=== PATIENT | male | born 1950 | race Caucasian/White ===

== ENCOUNTER 2019-10-02 12:00 | Inpatient (IN) | payer MEDICARE, OTHER ==
[~2019-10-02] VITALS: Ht 182.9 cm; Wt 77.0 kg
[~2019-10-02 12:00] MED LIST: ABX; EYE DROPS
[2019-10-02 12:34] LABS: BASOPHILS % (AUTO) 0.2 % (0.0-2.0); EOSINOPHILS % (AUTO) 0 % (1.0-6.0); HEMATOCRIT 47.2 % (41-53); HEMOGLOBIN 15.3 g/dL (13.5-17.5); LYMPHOCYTES # (AUTO) 0.7 K/uL (1.0-4.8); LYMPHOCYTES % (AUTO) 25.9 % (22.0-44.0); MEAN CORPUSCULAR HEMOGLOBIN 30.1 pg (26.0-34.0); MEAN CORPUSCULAR HGB CONC 32.4 G/dL (31.0-37.0); MEAN CORPUSCULAR VOLUME 93 fL (80-100); MONOCYTES # (AUTO) 0.3 K/uL (0.1-1.0); MONOCYTES % (AUTO) 9.4 % (2.0-9.0); NEUTROPHILS # (AUTO) 1.8 K/uL (1.8-7.7); NEUTROPHILS % (AUTO) 64.5 % (40.0-70.0); PLATELET COUNT (AUTO) 147 K/uL (150-450); RED BLOOD CELL COUNT(AUTO) 5.07 MIL/uL (4.50-5.90); RED CELL DISTRIBUTION WIDTH 14.7 % (11.5-14.5)
[2019-10-02 12:40] LABS: ABG A-A DIFF O2 601.5 mmHg (10-20.0); ABG BASE EXCESS -6.6 mmol/L (-2.0-3.0); ABG CARBOXYHEMOGLOBIN 0.8 % (0.0-1.5); ABG METHEMOGLOBIN 0.1 % (0.0-1.5); ABG OXYHEMOGLOBIN 88.2 % (94.0-100.0); ABG PCO2 47 mmHg (35-45); ABG PH 7.258 (7.35-7.450); ABG TOTAL HEMOGLOBIN 13.7 G/dL (12.0-18.0); SOURCE, BLOOD GAS ARTERIAL; TEMPERATURE, FAHRENHEIT, BG 99.7 FAHREN (96.0-98.6)
[2019-10-02 12:41] LABS: O2 DEVICE,BLOOD GAS BIPAP (ROOM AIR); SITE, BLOOD GAS RT BRACHIAL; VENT MODE, BG NIPPV (ROOM AIR)
[2019-10-02 12:42] LABS: PRESSURE SUPPORT, BG 13 cm H2O; SPONTANEOUS VT, BG 729 ml
[2019-10-02] MEDS ORDERED: VANCOMYCIN HCL 1 GM/D5% WATER 200 ML IV ONE (12:45)
[2019-10-02] MEDS ORDERED: PIPERACILLIN SODIUM/TAZOBACTAM 4.5 GM in DEXTROSE 5%-WATER 100 ML IV ONE (12:45)
[2019-10-02 12:48] LABS: INR 1.2 (0.9-1.1); PROTHROMBIN TIME 11.7 SEC (9.4-11.6)
[2019-10-02] MEDS ORDERED: SODIUM CHLORIDE 0.9% 0 ML ONE ×2 (12:51→16:08)
[2019-10-02] MEDS ORDERED: IOVERSOL 320 MG/ML 100 ML VIAL ONE (12:51)
[2019-10-02 12:55] LABS: ANION GAP 11 mmol/L (8-16); CALCIUM, TOTAL 9.3 mg/dL (8.8-10.5); CARBON DIOXIDE 25 mmol/L (22-29); CHLORIDE 107 mmol/L (98-107); CREATININE 1.68 mg/dL (0.60-1.30); GLOMERULAR FILTR. RATE CALC 41 mL/min (>60); GLUCOSE,RANDOM 119 mg/dL (70-110); SODIUM SERUM 143 mmol/L (136-145); UREA NITROGEN, BLOOD 20 mg/dL (7-18)
[2019-10-02 12:58] LABS: B-TYPE NATRIURETIC PEPTIDE 157 pg/mL (0-100)
[2019-10-02] MEDS ORDERED: LORazepam 2 MG/ML VIAL IVP ONE ×2 (13:00→18:30)
[2019-10-02 13:03] LABS: SALICYLATE 0.9 mg/dL (2.8-20.0)
[2019-10-02 13:21] LABS: ALANINE AMINOTRANSFERASE 30 U/L (12-78); ALKALINE PHOSPHATASE 69 U/L (46-116); ASPARTATE AMINOTRANSFERASE 62 U/L (15-37); BILIRUBIN,TOTAL 0.7 mg/dL (0.1-1.0); TOTAL PROTEIN, SERUM 6.9 g/dL (6.4-8.2)
[2019-10-02 13:22] LABS: ACETAMINOPHEN < 2 mcg/mL (10-30); CREATINE KINASE, TOTAL ONLY 1268 U/L (39-308)
[2019-10-02 13:58] LABS: LACTIC ACID 6.1 mmol/L (0.4-2.0)
[2019-10-02] MEDS ORDERED: ACETAMINOPHEN 325 MG TABLET PO PRN (14:00)
[2019-10-02] MEDS ORDERED: ONDANSETRON HCL 4 MG/2 ML VIAL IVP PRN ×2 (14:00→19:30)
[2019-10-02] MEDS ORDERED: 0.9% SODIUM CHLORIDE 10 ML SYRINGE IVP PRN ×2 (14:00→19:30)
[2019-10-02] MEDS ORDERED: SODIUM CHLORIDE 0.9% 1,000 ML IV ONE (14:15)
[2019-10-02 14:25] LABS: APPEARANCE,URINE CLOUDY (CLEAR); GLUCOSE, URINE (UA) NEGATIVE (NEGATIVE); KETONES,URINE NEGATIVE (NEGATIVE); LEUKOCYTE ESTERASE ,URINE NEGATIVE (NEGATIVE); NITRATE,URINE NEGATIVE (NEGATIVE); OCCULT BLOOD,URINE LARGE (NEGATIVE); PROTEIN,URINE SEE CONFIRM (NEGATIVE)
[2019-10-02 14:27] LABS: BILIRUBIN,URINE PRELIM. POSITIVE (NEGATIVE)
[2019-10-02 14:30] LABS: AMPHET/METH SCREEN,URINE NEGATIVE (NEGATIVE); BARBITURATE SCREEN, URINE NEGATIVE (NEGATIVE); BENZODIAZEPINES SCREEN,URINE NEGATIVE (NEGATIVE); CANNABINOID SCREEN,URINE NEGATIVE (NEGATIVE); COCAINE SCREEN,URINE NEGATIVE (NEGATIVE); METHADONE SCREEN, URINE NEGATIVE (NEGATIVE); OPIATE SCREEN,URINE NEGATIVE (NEGATIVE)
[2019-10-02 14:34] LABS: SULFOSALICYLIC ACID,URINE 2+ (Negative)
[2019-10-02 14:35] LABS: BACTERIA,URINE Moderate /HPF (None Seen); PHENCYCLIDINE SCREEN,URINE NEGATIVE (NEGATIVE); WBC,URINE None Seen /HPF (0-5)
[2019-10-02 14:37] LABS: INFLUENZA TYPE A POSITIVE FOR TYPE A (NEGATIVE); INFLUENZA TYPE B NEGATIVE FOR TYPE B (NEGATIVE)
[2019-10-02] MEDS ORDERED: IOVERSOL 350 MG/ML 100 ML VIAL ONE (16:08)
[2019-10-02 18:00] VITALS: BP 96/64
[2019-10-02] MEDS ORDERED: PENTETATE DTPA TC99M/MCL ISOTOPE 1 EA INJ INJ ONE (19:00)
[2019-10-02] MEDS ORDERED: ALBUTEROL SULFATE 2.5 MG/0.5 ML NEB SOLUTION NEB PRN (19:30)
[2019-10-02] MEDS ORDERED: IPRATROPIUM BROMIDE 0.5 MG/2.5 ML NEB SOLUTION NEB PRN (19:30)
[2019-10-02] MEDS ORDERED: MAA ALBUMIN AGGREGATED TC99M/UD<10MCL ISOTOPE 1 EA INJ INJ ONE (19:45)
[2019-10-02] MEDS ORDERED: VANCOMYCIN HCL 500 MG in DEXTROSE 5%-WATER 100 ML IV ONE (20:00)
[2019-10-02] MEDS ORDERED: LORazepam 2 MG/ML VIAL IVP PRN (20:00)
[2019-10-02 20:20] VITALS: BP 137/96
[2019-10-02] MEDS: IPRATROPIUM BROMIDE 0.5 MG/2.5 ML NEB SOLUTION NEB SCH (20:41)
[2019-10-02] MEDS: ALBUTEROL SULFATE 2.5 MG/0.5 ML NEB SOLUTION NEB SCH (20:41)
[2019-10-02] MEDS: OSELTAMIVIR PHOSPHATE 30 MG CAPSULE PO SCH (21:00)
[2019-10-02] MEDS ORDERED: SODIUM CHLORIDE 0.9% 250 ML IV ONE (21:42)
[2019-10-02] MEDS: PIPERACILLIN/TAZO 3.375 GM/D5W 50 ML IV SCH (21:53)
[2019-10-02] MEDS: PANTOPRAZOLE SODIUM 40 MG/VIAL IVP SCH (21:53)
[2019-10-02 22:01] LABS: ABG A-A DIFF O2 461.2 mmHg (10-20.0); ABG BASE EXCESS -3.1 mmol/L (-2.0-3.0); ABG CARBOXYHEMOGLOBIN 0.1 % (0.0-1.5); ABG HCO3 21.9 mmol/L (22.0-26.0); ABG METHEMOGLOBIN 0.3 % (0.0-1.5); ABG OXYGEN CONTENT 17.5 mL/dL (15.0-23.0); ABG OXYGEN SATURATION 92.2 % (95.0-98.0); ABG OXYHEMOGLOBIN 91.8 % (94.0-100.0); ABG PCO2 43 mmHg (35-45); ABG PH 7.342 (7.35-7.450); ABG TOTAL HEMOGLOBIN 13.6 G/dL (12.0-18.0); O2 DEVICE,BLOOD GAS BIPAP (ROOM AIR); PO2, ARTERIAL BG 63.6 mmHg (79.0-87.0); SITE, BLOOD GAS RT RADIAL; SOURCE, BLOOD GAS ARTERIAL; TEMPERATURE, FAHRENHEIT, BG 99.3 FAHREN (96.0-98.6)
[2019-10-03] VITALS (7 sets, daily range): BP systolic 89–107; BP diastolic 50–65
[2019-10-03] MEDS: AZITHROMYCIN 500 MG/NS 250 ML IV SCH ×2 (00:35→23:15)
[2019-10-03] MEDS: HEPARIN SODIUM,PORCINE 5,000 UNITS/ML VIAL SQ SCH ×3 (00:38→15:25)
[2019-10-03] MEDS: IPRATROPIUM BROMIDE 0.5 MG/2.5 ML NEB SOLUTION NEB SCH ×4 (02:15→20:00)
[2019-10-03] MEDS: ALBUTEROL SULFATE 2.5 MG/0.5 ML NEB SOLUTION NEB SCH ×4 (02:16→20:00)
[2019-10-03] MEDS ORDERED: SODIUM CHLORIDE 0.9% 250 ML IV ONE (05:01)
[2019-10-03] MEDS: PIPERACILLIN/TAZO 3.375 GM/D5W 50 ML IV SCH ×4 (05:17→20:49)
[2019-10-03] MEDS: OSELTAMIVIR PHOSPHATE 30 MG CAPSULE PO SCH ×2 (08:00→20:49)
[2019-10-03] MEDS ORDERED: VANCOMYCIN HCL 1 GM/D5% WATER 200 ML IV SCH (08:00)
[2019-10-03] MEDS: BUDESONIDE 0.5 MG/2 ML NEB SOLUTION NEB SCH ×2 (08:01→21:00)
[2019-10-03] MEDS: PANTOPRAZOLE SODIUM 40 MG/VIAL IVP SCH (09:11)
[2019-10-03 09:50] LABS: BASOPHILS % (AUTO) 0.1 % (0.0-2.0); EOSINOPHILS % (AUTO) 0 % (1.0-6.0); HEMATOCRIT 37.2 % (41-53); HEMOGLOBIN 12.5 g/dL (13.5-17.5); LYMPHOCYTES # (AUTO) 0.6 K/uL (1.0-4.8); LYMPHOCYTES % (AUTO) 12.2 % (22.0-44.0); MEAN CORPUSCULAR HEMOGLOBIN 30.7 pg (26.0-34.0); MEAN CORPUSCULAR HGB CONC 33.4 G/dL (31.0-37.0); MEAN CORPUSCULAR VOLUME 92 fL (80-100); MONOCYTES # (AUTO) 0.2 K/uL (0.1-1.0); MONOCYTES % (AUTO) 4.4 % (2.0-9.0); NEUTROPHILS # (AUTO) 4.2 K/uL (1.8-7.7); NEUTROPHILS % (AUTO) 83.3 % (40.0-70.0); RED BLOOD CELL COUNT(AUTO) 4.06 MIL/uL (4.50-5.90); RED CELL DISTRIBUTION WIDTH 14.7 % (11.5-14.5)
[2019-10-03 09:54] LABS: ANION GAP 4 mmol/L (8-16); CALCIUM, TOTAL 8.6 mg/dL (8.8-10.5); CARBON DIOXIDE 29 mmol/L (22-29); CHLORIDE 113 mmol/L (98-107); CREATININE 1.29 mg/dL (0.60-1.30); GLOMERULAR FILTR. RATE CALC 55 mL/min (>60); GLUCOSE,RANDOM 98 mg/dL (70-110); POTASSIUM 3.6 mmol/L (3.5-5.1); SODIUM SERUM 146 mmol/L (136-145); UREA NITROGEN, BLOOD 19 mg/dL (7-18)
[2019-10-03 10:00] LABS: ALANINE AMINOTRANSFERASE 37 U/L (12-78); ALBUMIN 2.2 g/dL (3.4-5.0); ALKALINE PHOSPHATASE 47 U/L (46-116); ASPARTATE AMINOTRANSFERASE 158 U/L (15-37); BILIRUBIN,TOTAL 0.8 mg/dL (0.1-1.0); TOTAL PROTEIN, SERUM 5.4 g/dL (6.4-8.2)
[2019-10-03 10:19] LABS: PLATELET COUNT (AUTO) 90 K/uL (150-450)
[2019-10-03 12:24] LABS: ABG A-A DIFF O2 468.5 mmHg (10-20.0); ABG BASE EXCESS -1.5 mmol/L (-2.0-3.0); ABG CARBOXYHEMOGLOBIN 0.4 % (0.0-1.5); ABG HCO3 23.5 mmol/L (22.0-26.0); ABG METHEMOGLOBIN 0.3 % (0.0-1.5); ABG OXYGEN CONTENT 16.5 mL/dL (15.0-23.0); ABG OXYGEN SATURATION 92.8 % (95.0-98.0); ABG OXYHEMOGLOBIN 92.2 % (94.0-100.0); ABG PCO2 37 mmHg (35-45); ABG PH 7.419 (7.35-7.450); ABG TOTAL HEMOGLOBIN 12.7 G/dL (12.0-18.0); PO2, ARTERIAL BG 63.4 mmHg (79.0-87.0); SOURCE, BLOOD GAS ARTERIAL; TEMPERATURE, FAHRENHEIT, BG 98.7 FAHREN (96.0-98.6)
[2019-10-03 12:25] LABS: SITE, BLOOD GAS RT RADIAL
[2019-10-03 12:26] LABS: O2 DEVICE,BLOOD GAS BIPAP (ROOM AIR)
[2019-10-03] MEDS ORDERED: ALBUMIN HUMAN 25%-25GM/100ML 100 ML IV PRN (14:00)
[2019-10-03] MEDS ORDERED: SODIUM CHLORIDE 0.9% 1,000 ML IV SCH (14:00)
[2019-10-03] MEDS ORDERED: POTASSIUM CHLORIDE 20 MEQ ER TABLET PO PRN ×2 (14:00)
[2019-10-03] MEDS ORDERED: POTASSIUM CHLORIDE 10% 40 MEQ/30 ML LIQUID UDCUP PO PRN ×2 (14:00)
[2019-10-03] MEDS ORDERED: POTASSIUM CHL 10 MEQ/WATER 50 ML IV PRN ×3 (14:00)
[2019-10-03] MEDS ORDERED: ALBUMIN HUMAN 25%-25GM/100ML 100 ML IV ONE (14:00)
[2019-10-03] MEDS: POTASSIUM CHL 10 MEQ/WATER 50 ML IV PRN ×3 (15:00→17:35)
[2019-10-03] MEDS ORDERED: OSELTAMIVIR PHOSPHATE 30 MG CAPSULE PO ONE (15:00)
[2019-10-03] MEDS: CLOTRIMAZOLE 1% 15 GM CREAM TP SCH (17:38)
[2019-10-03] MEDS ORDERED: RINGERS SOLUTION,LACTATED 500 ML IV SCH (18:45)
[2019-10-03] MEDS: VANCOMYCIN HCL 750 MG in DEXTROSE 5%-WATER 250 ML IV SCH (20:06)
[2019-10-03] MEDS: RINGERS SOLUTION,LACTATED 1,000 ML IV SCH (20:09)
[2019-10-04] VITALS: BP 95/61
[2019-10-04] MEDS: HEPARIN SODIUM,PORCINE 5,000 UNITS/ML VIAL SQ SCH ×3 (01:29→17:00)
[2019-10-04] MEDS: ALBUTEROL SULFATE 2.5 MG/0.5 ML NEB SOLUTION NEB SCH ×4 (01:59→20:00)
[2019-10-04] MEDS: IPRATROPIUM BROMIDE 0.5 MG/2.5 ML NEB SOLUTION NEB SCH ×4 (01:59→20:00)
[2019-10-04] MEDS: PIPERACILLIN/TAZO 3.375 GM/D5W 50 ML IV SCH ×4 (03:22→21:50)
[2019-10-04 04:00] VITALS: BP 95/57
[2019-10-04 05:19] LABS: BASOPHILS % (AUTO) 0.1 % (0.0-2.0); EOSINOPHILS % (AUTO) 0 % (1.0-6.0); HEMATOCRIT 30.3 % (41-53); HEMOGLOBIN 10.3 g/dL (13.5-17.5); LYMPHOCYTES # (AUTO) 0.5 K/uL (1.0-4.8); LYMPHOCYTES % (AUTO) 11.5 % (22.0-44.0); MEAN CORPUSCULAR HGB CONC 34.1 G/dL (31.0-37.0); MEAN CORPUSCULAR VOLUME 91 fL (80-100); MONOCYTES # (AUTO) 0.1 K/uL (0.1-1.0); NEUTROPHILS # (AUTO) 3.9 K/uL (1.8-7.7); RED BLOOD CELL COUNT(AUTO) 3.33 MIL/uL (4.50-5.90); RED CELL DISTRIBUTION WIDTH 14.7 % (11.5-14.5)
[2019-10-04 05:35] LABS: ANION GAP 7 mmol/L (8-16); CALCIUM, TOTAL 8.4 mg/dL (8.8-10.5); CARBON DIOXIDE 28 mmol/L (22-29); CHLORIDE 112 mmol/L (98-107); CREATININE 1.19 mg/dL (0.60-1.30); GLOMERULAR FILTR. RATE CALC > 60 mL/min (>60); GLUCOSE,RANDOM 96 mg/dL (70-110); POTASSIUM 3.3 mmol/L (3.5-5.1); SODIUM SERUM 147 mmol/L (136-145); UREA NITROGEN, BLOOD 17 mg/dL (7-18)
[2019-10-04 05:59] LABS: NEUTROPHILS % (AUTO) 86.4 % (40.0-70.0)
[2019-10-04 06:07] LABS: PHOSPHORUS 1.2 mg/dL (2.5-4.9)
[2019-10-04] MEDS: BUDESONIDE 0.5 MG/2 ML NEB SOLUTION NEB SCH ×2 (07:54→20:00)
[2019-10-04 08:00] VITALS: BP 98/61
[2019-10-04 08:09] LABS: PLATELET COUNT (AUTO) 85 K/uL (150-450)
[2019-10-04 08:44] LABS: ABG A-A DIFF O2 251.5 mmHg (10-20.0); ABG BASE EXCESS 0.1 mmol/L (-2.0-3.0); ABG CARBOXYHEMOGLOBIN 0.3 % (0.0-1.5); ABG HCO3 24.6 mmol/L (22.0-26.0); ABG METHEMOGLOBIN 0.3 % (0.0-1.5); ABG OXYGEN CONTENT 14.5 mL/dL (15.0-23.0); ABG OXYGEN SATURATION 92.3 % (95.0-98.0); ABG OXYHEMOGLOBIN 91.7 % (94.0-100.0); ABG PCO2 38 mmHg (35-45); ABG PH 7.425 (7.35-7.450); ABG TOTAL HEMOGLOBIN 11.2 G/dL (12.0-18.0); SOURCE, BLOOD GAS ARTERIAL; TEMPERATURE, FAHRENHEIT, BG 98.6 FAHREN (96.0-98.6)
[2019-10-04] MEDS: CLOTRIMAZOLE 1% 15 GM CREAM TP SCH ×2 (08:59→20:53)
[2019-10-04] MEDS: PANTOPRAZOLE SODIUM 40 MG/VIAL IVP SCH (08:59)
[2019-10-04] MEDS: VANCOMYCIN HCL 750 MG in DEXTROSE 5%-WATER 250 ML IV SCH ×2 (08:59→20:52)
[2019-10-04] MEDS: OSELTAMIVIR PHOSPHATE 30 MG CAPSULE PO SCH (08:59)
[2019-10-04] MEDS ORDERED: POTASSIUM CHLORIDE 20 MEQ ER TABLET PO PRN (09:00)
[2019-10-04] MEDS: RINGERS SOLUTION,LACTATED 1,000 ML IV SCH ×2 (09:00→22:29)
[2019-10-04 09:01] LABS: O2 DEVICE,BLOOD GAS BIPAP (ROOM AIR); SITE, BLOOD GAS RT RADIAL
[2019-10-04 09:02] LABS: CPAP, BG 0 cm H2O
[2019-10-04 09:03] LABS: INSPIRATORY TIME, BG 1 SEC; PRESSURE SUPPORT, BG 13 cm H2O; SPONTANEOUS VT, BG 642 ml
[2019-10-04] MEDS ORDERED: POTASSIUM PHOS,M-BASIC-D-BASIC 30 MEQ in DEXTROSE 5%-WATER 150 ML IV ONE ×2 (11:00→18:00)
[2019-10-04] MEDS ORDERED: OSELTAMIVIR PHOSPHATE 30 MG CAPSULE PO ONE (11:00)
[2019-10-04 12:00] VITALS: BP 109/68
[2019-10-04] MEDS ORDERED: MORPHINE SULFATE 2 MG/ML SYRINGE IVP PRN (13:45)
[2019-10-04 16:00] VITALS: BP 142/73
[2019-10-04] MEDS: ACETAMINOPHEN 650 MG/20.3 ML SOLUTION UDCUP NG PRN (18:02)
[2019-10-04] MEDS ORDERED: SODIUM CHLORIDE 0.9% 250 ML IV ONE ×2 (18:40→20:55)
[2019-10-04 20:00] VITALS: BP 106/60
[2019-10-04] MEDS: OSELTAMIVIR PHOSPHATE 75 MG CAPSULE PO SCH (20:53)
[2019-10-04] MEDS: AZITHROMYCIN 500 MG/NS 250 ML IV SCH (22:48)
[2019-10-05] VITALS: BP 116/76
[2019-10-05] MEDS: HEPARIN SODIUM,PORCINE 5,000 UNITS/ML VIAL SQ SCH ×3 (00:40→15:01)
[2019-10-05] MEDS: ALBUTEROL SULFATE 2.5 MG/0.5 ML NEB SOLUTION NEB SCH ×4 (01:22→20:13)
[2019-10-05] MEDS: IPRATROPIUM BROMIDE 0.5 MG/2.5 ML NEB SOLUTION NEB SCH ×4 (01:22→20:13)
[2019-10-05] MEDS ORDERED: SODIUM CHLORIDE 0.9% 250 ML IV ONE (03:01)
[2019-10-05 04:00] VITALS: BP 107/67
[2019-10-05] MEDS: PIPERACILLIN/TAZO 3.375 GM/D5W 50 ML IV SCH ×4 (04:00→21:58)
[2019-10-05 05:13] LABS: BASOPHILS % (AUTO) 0.2 % (0.0-2.0); EOSINOPHILS % (AUTO) 0 % (1.0-6.0); HEMATOCRIT 26.6 % (41-53); HEMOGLOBIN 8.9 g/dL (13.5-17.5); LYMPHOCYTES # (AUTO) 0.7 K/uL (1.0-4.8); LYMPHOCYTES % (AUTO) 12.7 % (22.0-44.0); MEAN CORPUSCULAR HEMOGLOBIN 30.7 pg (26.0-34.0); MEAN CORPUSCULAR HGB CONC 33.4 G/dL (31.0-37.0); MEAN CORPUSCULAR VOLUME 92 fL (80-100); MONOCYTES # (AUTO) 0.2 K/uL (0.1-1.0); MONOCYTES % (AUTO) 4.1 % (2.0-9.0); NEUTROPHILS # (AUTO) 4.7 K/uL (1.8-7.7); PLATELET COUNT (AUTO) 69 K/uL (150-450)
[2019-10-05 05:30] LABS: ANION GAP 10 mmol/L (8-16); CALCIUM, TOTAL 7.8 mg/dL (8.8-10.5); CARBON DIOXIDE 24 mmol/L (22-29); CHLORIDE 110 mmol/L (98-107); CREATININE 0.78 mg/dL (0.60-1.30); GLOMERULAR FILTR. RATE CALC > 60 mL/min (>60); GLUCOSE,RANDOM 64 mg/dL (70-110); PHOSPHORUS 1.5 mg/dL (2.5-4.9); POTASSIUM 3.9 mmol/L (3.5-5.1); SODIUM SERUM 144 mmol/L (136-145); UREA NITROGEN, BLOOD 10 mg/dL (7-18)
[2019-10-05 08:00] VITALS: BP 109/70
[2019-10-05] MEDS: VANCOMYCIN HCL 1 GM/D5% WATER 200 ML IV SCH ×2 (08:22→20:05)
[2019-10-05] MEDS: OSELTAMIVIR PHOSPHATE 75 MG CAPSULE PO SCH ×2 (08:22→20:54)
[2019-10-05] MEDS: CLOTRIMAZOLE 1% 15 GM CREAM TP SCH ×2 (08:23→20:54)
[2019-10-05] MEDS: PANTOPRAZOLE SODIUM 40 MG/VIAL IVP SCH (08:23)
[2019-10-05] MEDS: BUDESONIDE 0.5 MG/2 ML NEB SOLUTION NEB SCH ×2 (08:36→20:13)
[2019-10-05 08:55] LABS: ABG A-A DIFF O2 228.3 mmHg (10-20.0); ABG BASE EXCESS -2.1 mmol/L (-2.0-3.0); ABG CARBOXYHEMOGLOBIN 0.3 % (0.0-1.5); ABG HCO3 23.1 mmol/L (22.0-26.0); ABG METHEMOGLOBIN 0.3 % (0.0-1.5); ABG OXYGEN SATURATION 95.9 % (95.0-98.0); ABG OXYHEMOGLOBIN 95.3 % (94.0-100.0); ABG PCO2 36 mmHg (35-45); ABG PH 7.411 (7.35-7.450); ABG TOTAL HEMOGLOBIN 11.1 G/dL (12.0-18.0); PO2, ARTERIAL BG 86.4 mmHg (79.0-87.0); SOURCE, BLOOD GAS ARTERIAL; TEMPERATURE, FAHRENHEIT, BG 99.8 FAHREN (96.0-98.6)
[2019-10-05 09:28] LABS: O2 DEVICE,BLOOD GAS BIPAP (ROOM AIR); SITE, BLOOD GAS LFT RADIAL
[2019-10-05 09:29] LABS: INSPIRATORY TIME, BG 1 SEC; SPONTANEOUS VT, BG 683 ml
[2019-10-05] MEDS: RINGERS SOLUTION,LACTATED 1,000 ML IV SCH (11:57)
[2019-10-05 12:00] VITALS: BP 118/58
[2019-10-05] MEDS ORDERED: MAGNESIUM SULFATE 4 GM/WATER 100 ML IV PRN (13:45)
[2019-10-05] MEDS ORDERED: MAGNESIUM SULFATE 2 GM/WATER 50 ML IV PRN (13:45)
[2019-10-05] MEDS ORDERED: POTASSIUM CHLORIDE 20 MEQ ER TABLET PO PRN (13:45)
[2019-10-05] MEDS ORDERED: MAGNESIUM OXIDE 400 MG TABLET PO PRN (13:45)
[2019-10-05 14:02] LABS: ALBUMIN 1.7 g/dL (3.4-5.0)
[2019-10-05] MEDS: POTASSIUM PHOS/SODIUM PHOS MIXTURE 1 POWDER PACKET PO SCH ×2 (15:04→20:54)
[2019-10-05 16:00] VITALS: BP 99/42
[2019-10-05 20:00] VITALS: BP 139/65
[2019-10-05] MEDS: AZITHROMYCIN 500 MG/NS 250 ML IV SCH (23:00)
[2019-10-05 23:11] LABS: ABG A-A DIFF O2 497.1 mmHg (10-20.0); ABG METHEMOGLOBIN 0.3 % (0.0-1.5); ABG OXYGEN CONTENT 15.2 mL/dL (15.0-23.0); ABG OXYHEMOGLOBIN 91.7 % (94.0-100.0); ABG PCO2 42 mmHg (35-45); ABG PH 7.416 (7.35-7.450); ABG TOTAL HEMOGLOBIN 11.8 G/dL (12.0-18.0); PO2, ARTERIAL BG 63.3 mmHg (79.0-87.0); SOURCE, BLOOD GAS ARTERIAL
[2019-10-05 23:12] LABS: SITE, BLOOD GAS RT RADIAL
[2019-10-05 23:13] LABS: O2 DEVICE,BLOOD GAS BIPAP (ROOM AIR); SPONTANEOUS VT, BG 487 ml
[2019-10-06] VITALS (7 sets, daily range): BP systolic 102–139; BP diastolic 56–71
[2019-10-06] MEDS: HEPARIN SODIUM,PORCINE 5,000 UNITS/ML VIAL SQ SCH ×3 (00:47→16:31)
[2019-10-06] MEDS: RINGERS SOLUTION,LACTATED 1,000 ML IV SCH ×2 (00:51→14:44)
[2019-10-06] MEDS: IPRATROPIUM BROMIDE 0.5 MG/2.5 ML NEB SOLUTION NEB SCH ×4 (01:44→20:04)
[2019-10-06] MEDS: ALBUTEROL SULFATE 2.5 MG/0.5 ML NEB SOLUTION NEB SCH ×4 (01:44→20:04)
[2019-10-06] MEDS: LORazepam 2 MG/ML VIAL IVP PRN (02:45)
[2019-10-06] MEDS: PIPERACILLIN/TAZO 3.375 GM/D5W 50 ML IV SCH ×4 (03:48→22:13)
[2019-10-06] MEDS: ACETAMINOPHEN 650 MG/20.3 ML SOLUTION UDCUP NG PRN (04:01)
[2019-10-06 05:22] LABS: BASOPHILS % (AUTO) 0.3 % (0.0-2.0); EOSINOPHILS % (AUTO) 0.1 % (1.0-6.0); HEMATOCRIT 33.2 % (41-53); LYMPHOCYTES # (AUTO) 0.5 K/uL (1.0-4.8); LYMPHOCYTES % (AUTO) 13.5 % (22.0-44.0); MEAN CORPUSCULAR HEMOGLOBIN 30.3 pg (26.0-34.0); MEAN CORPUSCULAR HGB CONC 33.2 G/dL (31.0-37.0); MEAN CORPUSCULAR VOLUME 91 fL (80-100); MONOCYTES # (AUTO) 0.4 K/uL (0.1-1.0); MONOCYTES % (AUTO) 9.8 % (2.0-9.0); NEUTROPHILS % (AUTO) 76.3 % (40.0-70.0); PLATELET COUNT (AUTO) 85 K/uL (150-450); RED BLOOD CELL COUNT(AUTO) 3.63 MIL/uL (4.50-5.90); RED CELL DISTRIBUTION WIDTH 15.7 % (11.5-14.5)
[2019-10-06 05:41] LABS: ALANINE AMINOTRANSFERASE 46 U/L (12-78); ALBUMIN 1.9 g/dL (3.4-5.0); ALKALINE PHOSPHATASE 161 U/L (46-116); ANION GAP 6 mmol/L (8-16); ASPARTATE AMINOTRANSFERASE 86 U/L (15-37); CALCIUM, TOTAL 8.3 mg/dL (8.8-10.5); CARBON DIOXIDE 29 mmol/L (22-29); CHLORIDE 112 mmol/L (98-107); CREATININE 0.99 mg/dL (0.60-1.30); GLOMERULAR FILTR. RATE CALC > 60 mL/min (>60); GLUCOSE,RANDOM 129 mg/dL (70-110); POTASSIUM 3.7 mmol/L (3.5-5.1); SODIUM SERUM 147 mmol/L (136-145); TOTAL PROTEIN, SERUM 5.2 g/dL (6.4-8.2); UREA NITROGEN, BLOOD 9 mg/dL (7-18)
[2019-10-06] MEDS: BUDESONIDE 0.5 MG/2 ML NEB SOLUTION NEB SCH ×2 (07:42→20:04)
[2019-10-06] MEDS: VANCOMYCIN HCL 1 GM/D5% WATER 200 ML IV SCH ×2 (08:39→20:03)
[2019-10-06] MEDS: POTASSIUM PHOS/SODIUM PHOS MIXTURE 1 POWDER PACKET PO SCH (08:43)
[2019-10-06] MEDS: OSELTAMIVIR PHOSPHATE 75 MG CAPSULE PO SCH ×2 (08:43→21:22)
[2019-10-06] MEDS: PANTOPRAZOLE SODIUM 40 MG/VIAL IVP SCH (08:43)
[2019-10-06] MEDS: CLOTRIMAZOLE 1% 15 GM CREAM TP SCH ×2 (08:44→21:21)
[2019-10-06] MEDS ORDERED: RAPID SEQUENCE KIT [RSI] 1 EACH KIT ONE (08:58)
[2019-10-06 09:06] LABS: ABG BASE EXCESS 5.2 mmol/L (-2.0-3.0); ABG HCO3 28.3 mmol/L (22.0-26.0); ABG METHEMOGLOBIN 0.3 % (0.0-1.5); ABG OXYGEN CONTENT 14.7 mL/dL (15.0-23.0); ABG OXYHEMOGLOBIN 93.7 % (94.0-100.0); ABG PCO2 49 mmHg (35-45); ABG PH 7.402 (7.35-7.450); ABG TOTAL HEMOGLOBIN 11.1 G/dL (12.0-18.0); PO2, ARTERIAL BG 68.6 mmHg (79.0-87.0); SOURCE, BLOOD GAS ARTERIAL; TEMPERATURE, FAHRENHEIT, BG 98.6 FAHREN (96.0-98.6)
[2019-10-06 09:07] LABS: O2 DEVICE,BLOOD GAS BIPAP (ROOM AIR); SITE, BLOOD GAS RT RADIAL
[2019-10-06 09:08] LABS: PRESSURE SUPPORT, BG 9 cm H2O; SPONTANEOUS VT, BG 548 ml
[2019-10-06] MEDS: PROPOFOL 1000 MG/ISO-OSM 100 ML IV PRN ×3 (10:33→21:22)
[2019-10-06 15:28] LABS: SITE, BLOOD GAS RT RADIAL; SOURCE, BLOOD GAS ARTERIAL
[2019-10-06 15:29] LABS: ABG HCO3 28.6 mmol/L (22.0-26.0); ABG PCO2 40 mmHg (35-45); ABG PH 7.469 (7.35-7.450); ABG TOTAL HEMOGLOBIN 10.9 G/dL (12.0-18.0); PO2, ARTERIAL BG 70.9 mmHg (79.0-87.0); TEMPERATURE, FAHRENHEIT, BG 98.6 FAHREN (96.0-98.6)
[2019-10-06 15:30] LABS: ABG CARBOXYHEMOGLOBIN 0.3 % (0.0-1.5); ABG METHEMOGLOBIN 0.3 % (0.0-1.5); ABG OXYGEN CONTENT 14.5 mL/dL (15.0-23.0); ABG OXYHEMOGLOBIN 94.4 % (94.0-100.0); O2 DEVICE,BLOOD GAS VENTILATOR (ROOM AIR); VT, ABG 500 ml
[2019-10-06 15:31] LABS: PEEP,BG 5 cm H2O
[2019-10-06 16:32] LABS: APPEARANCE,URINE CLOUDY (CLEAR); BILIRUBIN,URINE NEGATIVE (NEGATIVE); GLUCOSE, URINE (UA) NEGATIVE (NEGATIVE); KETONES,URINE NEGATIVE (NEGATIVE); LEUKOCYTE ESTERASE ,URINE SMALL (NEGATIVE); NITRATE,URINE NEGATIVE (NEGATIVE); OCCULT BLOOD,URINE LARGE (NEGATIVE); PH,URINE 6.5 (5.0-8.0); PROTEIN,URINE SEE CONFIRM (NEGATIVE)
[2019-10-06 16:42] LABS: BACTERIA,URINE Few /HPF (None Seen); RBC,URINE 51-100 /HPF (0-2); SQUAMOUS EPITHELIAL CELL,UR Few /LPF (None Seen); SULFOSALICYLIC ACID,URINE 3+ (Negative)
[2019-10-06] MEDS ORDERED: ETOMIDATE 2 MG/ML 10 ML VIAL ONE (17:17)
[2019-10-06] MEDS ORDERED: VECURONIUM BROMIDE 10 MG/VIAL ONE (17:17)
[2019-10-06] MEDS ORDERED: SODIUM CHLORIDE 0.9% 250 ML IV ONE (20:00)
[2019-10-06] MEDS: AZITHROMYCIN 500 MG/NS 250 ML IV SCH (23:29)
[2019-10-07] VITALS: BP 108/56
[2019-10-07] MEDS: HEPARIN SODIUM,PORCINE 5,000 UNITS/ML VIAL SQ SCH ×4 (00:38→23:41)
[2019-10-07] MEDS: ALBUTEROL SULFATE 2.5 MG/0.5 ML NEB SOLUTION NEB SCH ×4 (01:25→20:46)
[2019-10-07] MEDS: IPRATROPIUM BROMIDE 0.5 MG/2.5 ML NEB SOLUTION NEB SCH ×4 (01:25→20:46)
[2019-10-07] MEDS: PROPOFOL 1000 MG/ISO-OSM 100 ML IV PRN ×5 (03:20→23:20)
[2019-10-07] MEDS: PIPERACILLIN/TAZO 3.375 GM/D5W 50 ML IV SCH ×4 (03:50→21:28)
[2019-10-07 04:00] VITALS: BP 128/62
[2019-10-07 05:49] LABS: BASOPHILS % (AUTO) 0.7 % (0.0-2.0); EOSINOPHILS % (AUTO) 0.5 % (1.0-6.0); HEMOGLOBIN 10.3 g/dL (13.5-17.5); LYMPHOCYTES # (AUTO) 0.9 K/uL (1.0-4.8); LYMPHOCYTES % (AUTO) 26.8 % (22.0-44.0); MEAN CORPUSCULAR HEMOGLOBIN 30.6 pg (26.0-34.0); MEAN CORPUSCULAR HGB CONC 33.3 G/dL (31.0-37.0); MEAN CORPUSCULAR VOLUME 92 fL (80-100); MONOCYTES # (AUTO) 0.5 K/uL (0.1-1.0); MONOCYTES % (AUTO) 14.5 % (2.0-9.0); NEUTROPHILS % (AUTO) 57.5 % (40.0-70.0); PLATELET COUNT (AUTO) 97 K/uL (150-450); RED BLOOD CELL COUNT(AUTO) 3.37 MIL/uL (4.50-5.90); RED CELL DISTRIBUTION WIDTH 15.1 % (11.5-14.5)
[2019-10-07] MEDS ORDERED: SODIUM CHLORIDE 0.9% 250 ML IV ONE (05:55)
[2019-10-07] MEDS: RINGERS SOLUTION,LACTATED 1,000 ML IV SCH ×2 (05:56→17:17)
[2019-10-07 06:14] LABS: ANION GAP 6 mmol/L (8-16); CARBON DIOXIDE 30 mmol/L (22-29); CHLORIDE 111 mmol/L (98-107); CREATININE 0.93 mg/dL (0.60-1.30); GLOMERULAR FILTR. RATE CALC > 60 mL/min (>60); GLUCOSE,RANDOM 105 mg/dL (70-110); POTASSIUM 3.3 mmol/L (3.5-5.1); SODIUM SERUM 147 mmol/L (136-145); UREA NITROGEN, BLOOD 8 mg/dL (7-18); VANCOMYCIN,RANDOM 28.6 mcg/mL (25.0-50.0)
[2019-10-07 08:00] VITALS: BP 133/67
[2019-10-07] MEDS: BUDESONIDE 0.5 MG/2 ML NEB SOLUTION NEB SCH ×2 (08:01→20:46)
[2019-10-07] MEDS: OSELTAMIVIR PHOSPHATE 75 MG CAPSULE PO SCH ×2 (08:39→21:27)
[2019-10-07] MEDS: PANTOPRAZOLE SODIUM 40 MG/VIAL IVP SCH (08:39)
[2019-10-07] MEDS: CLOTRIMAZOLE 1% 15 GM CREAM TP SCH ×2 (08:44→21:27)
[2019-10-07] MEDS: VANCOMYCIN HCL 1 GM/D5% WATER 200 ML IV SCH ×2 (08:49→20:21)
[2019-10-07] MEDS: POTASSIUM CHL 10 MEQ/WATER 50 ML IV PRN ×6 (08:49→20:21)
[2019-10-07] MEDS ORDERED: SODIUM CHLORIDE 0.9% 500 ML IV ONE ×2 (09:01→09:17)
[2019-10-07 11:25] LABS: LEGIONELLA PNEUMO AG URINE Negative (Negative); ORGANISM ID Not indicated.; S PNEUMO SOURCE Urine; STREP PNEUMONIAE AG URINE Negative (Negative); STREP.PNEUMO BODY FLUID CULT. Not indicated.
[2019-10-07 12:00] VITALS: BP 114/59
[2019-10-07 16:00] VITALS: BP 126/69
[2019-10-07 20:00] VITALS: BP 130/72
[2019-10-07] MEDS: AZITHROMYCIN 500 MG/NS 250 ML IV SCH (23:20)
[2019-10-08] VITALS: BP 118/54
[2019-10-08] MEDS: ALBUTEROL SULFATE 2.5 MG/0.5 ML NEB SOLUTION NEB SCH ×4 (02:30→20:23)
[2019-10-08] MEDS: IPRATROPIUM BROMIDE 0.5 MG/2.5 ML NEB SOLUTION NEB SCH ×4 (02:31→20:22)
[2019-10-08] MEDS: PROPOFOL 1000 MG/ISO-OSM 100 ML IV PRN ×4 (03:23→18:57)
[2019-10-08 04:00] VITALS: BP 124/63
[2019-10-08] MEDS: PIPERACILLIN/TAZO 3.375 GM/D5W 50 ML IV SCH ×2 (04:26→10:10)
[2019-10-08 05:14] LABS: BASOPHILS % (AUTO) 0.6 % (0.0-2.0); EOSINOPHILS % (AUTO) 1.6 % (1.0-6.0); HEMATOCRIT 31.9 % (41-53); HEMOGLOBIN 10.4 g/dL (13.5-17.5); LYMPHOCYTES # (AUTO) 0.8 K/uL (1.0-4.8); LYMPHOCYTES % (AUTO) 18.2 % (22.0-44.0); MEAN CORPUSCULAR HEMOGLOBIN 29.9 pg (26.0-34.0); MEAN CORPUSCULAR HGB CONC 32.6 G/dL (31.0-37.0); MEAN CORPUSCULAR VOLUME 92 fL (80-100); MONOCYTES # (AUTO) 0.6 K/uL (0.1-1.0); MONOCYTES % (AUTO) 13.3 % (2.0-9.0); NEUTROPHILS # (AUTO) 2.8 K/uL (1.8-7.7); NEUTROPHILS % (AUTO) 66.3 % (40.0-70.0); PLATELET COUNT (AUTO) 153 K/uL (150-450); RED BLOOD CELL COUNT(AUTO) 3.48 MIL/uL (4.50-5.90); RED CELL DISTRIBUTION WIDTH 15.6 % (11.5-14.5)
[2019-10-08 05:28] LABS: ANION GAP 1 mmol/L (8-16); CALCIUM, TOTAL 8.3 mg/dL (8.8-10.5); CARBON DIOXIDE 30 mmol/L (22-29); CHLORIDE 114 mmol/L (98-107); CREATININE 0.83 mg/dL (0.60-1.30); GLOMERULAR FILTR. RATE CALC > 60 mL/min (>60); GLUCOSE,RANDOM 112 mg/dL (70-110); SODIUM SERUM 145 mmol/L (136-145); UREA NITROGEN, BLOOD 6 mg/dL (7-18)
[2019-10-08] MEDS ORDERED: SODIUM CHLORIDE 0.9% 250 ML IV ONE ×2 (07:50→07:52)
[2019-10-08] MEDS: BUDESONIDE 0.5 MG/2 ML NEB SOLUTION NEB SCH ×2 (07:57→20:23)
[2019-10-08 08:00] VITALS: BP 134/53
[2019-10-08] MEDS: PANTOPRAZOLE SODIUM 40 MG/VIAL IVP SCH (08:03)
[2019-10-08] MEDS: HEPARIN SODIUM,PORCINE 5,000 UNITS/ML VIAL SQ SCH ×2 (08:03→17:02)
[2019-10-08] MEDS: MULTIVITAMINS, THERAPEUTIC 15 ML UDCUP GT SCH (08:04)
[2019-10-08] MEDS: THIAMINE HCL 100 MG TABLET PO SCH (08:04)
[2019-10-08] MEDS: OSELTAMIVIR PHOSPHATE 75 MG CAPSULE PO SCH ×2 (08:04→22:21)
[2019-10-08] MEDS: RINGERS SOLUTION,LACTATED 1,000 ML IV SCH ×2 (08:05→22:21)
[2019-10-08] MEDS: CLOTRIMAZOLE 1% 15 GM CREAM TP SCH ×2 (08:05→22:21)
[2019-10-08] MEDS: VANCOMYCIN HCL 1 GM/D5% WATER 200 ML IV SCH (08:06)
[2019-10-08 11:47] LABS: ABG A-A DIFF O2 162.1 mmHg (10-20.0); ABG BASE EXCESS 4.8 mmol/L (-2.0-3.0); ABG CARBOXYHEMOGLOBIN 0.3 % (0.0-1.5); ABG HCO3 28.3 mmol/L (22.0-26.0); ABG METHEMOGLOBIN 0.3 % (0.0-1.5); ABG OXYGEN CONTENT 13.9 mL/dL (15.0-23.0); ABG OXYGEN SATURATION 95.1 % (95.0-98.0); ABG OXYHEMOGLOBIN 94.5 % (94.0-100.0); ABG PCO2 43 mmHg (35-45); ABG PH 7.442 (7.35-7.450); ABG TOTAL HEMOGLOBIN 10.4 G/dL (12.0-18.0); PO2, ARTERIAL BG 73.5 mmHg (79.0-87.0); SOURCE, BLOOD GAS ARTERIAL; TEMPERATURE, FAHRENHEIT, BG 98.3 FAHREN (96.0-98.6)
[2019-10-08 11:53] LABS: O2 DEVICE,BLOOD GAS VENTILATOR (ROOM AIR); PEEP,BG 5 cm H2O; SITE, BLOOD GAS LFT RADIAL; VT, ABG 500 ml
[2019-10-08 12:00] VITALS: BP 130/68
[2019-10-08] MEDS ORDERED: POTASSIUM PHOS/SODIUM PHOS MIXTURE 1 POWDER PACKET PO SCH ×2 (15:00→21:00)
[2019-10-08 16:00] VITALS: BP 149/71
[2019-10-08] MEDS: CeFAZolin 2 GM/DEXTROSE 50 ML IV SCH (16:33)
[2019-10-08 17:26] LABS: ABG A-A DIFF O2 173.1 mmHg (10-20.0); ABG BASE EXCESS 3.2 mmol/L (-2.0-3.0); ABG CARBOXYHEMOGLOBIN 0.3 % (0.0-1.5); ABG HCO3 26.9 mmol/L (22.0-26.0); ABG METHEMOGLOBIN 0.3 % (0.0-1.5); ABG OXYGEN CONTENT 14.4 mL/dL (15.0-23.0); ABG OXYGEN SATURATION 92.4 % (95.0-98.0); ABG OXYHEMOGLOBIN 91.8 % (94.0-100.0); ABG PCO2 42 mmHg (35-45); ABG TOTAL HEMOGLOBIN 11.1 G/dL (12.0-18.0); SOURCE, BLOOD GAS ARTERIAL; TEMPERATURE, FAHRENHEIT, BG 99.3 FAHREN (96.0-98.6)
[2019-10-08 17:35] LABS: PEEP,BG 0 cm H2O; PRESSURE SUPPORT, BG 8 cm H2O; SITE, BLOOD GAS RT RADIAL; SPONTANEOUS VT, BG 538 ml; VENT MODE, BG CPAP (ROOM AIR)
[2019-10-09] MEDS: PROPOFOL 1000 MG/ISO-OSM 100 ML IV PRN ×3 (00:19→08:04)
[2019-10-09] MEDS: CeFAZolin 2 GM/DEXTROSE 50 ML IV SCH ×4 (00:20→23:47)
[2019-10-09] MEDS: RINGERS SOLUTION,LACTATED 1,000 ML IV SCH ×2 (00:20→17:45)
[2019-10-09] MEDS: HEPARIN SODIUM,PORCINE 5,000 UNITS/ML VIAL SQ SCH ×4 (00:20→23:47)
[2019-10-09] MEDS: ALBUTEROL SULFATE 2.5 MG/0.5 ML NEB SOLUTION NEB SCH ×4 (02:09→19:52)
[2019-10-09] MEDS: IPRATROPIUM BROMIDE 0.5 MG/2.5 ML NEB SOLUTION NEB SCH ×4 (02:09→19:52)
[2019-10-09 06:26] LABS: ANION GAP 2 mmol/L (8-16); CALCIUM, TOTAL 8.2 mg/dL (8.8-10.5); CARBON DIOXIDE 31 mmol/L (22-29); CHLORIDE 114 mmol/L (98-107); CREATININE 0.83 mg/dL (0.60-1.30); GLOMERULAR FILTR. RATE CALC > 60 mL/min (>60); GLUCOSE,RANDOM 131 mg/dL (70-110); POTASSIUM 3.9 mmol/L (3.5-5.1); SODIUM SERUM 147 mmol/L (136-145); UREA NITROGEN, BLOOD 6 mg/dL (7-18)
[2019-10-09 08:00] VITALS: BP 136/67
[2019-10-09] MEDS: MULTIVITAMINS, THERAPEUTIC 15 ML UDCUP GT SCH (08:04)
[2019-10-09] MEDS: PANTOPRAZOLE SODIUM 40 MG/VIAL IVP SCH (08:04)
[2019-10-09] MEDS: OSELTAMIVIR PHOSPHATE 75 MG CAPSULE PO SCH ×2 (08:04→20:00)
[2019-10-09] MEDS: THIAMINE HCL 100 MG TABLET PO SCH (08:05)
[2019-10-09] MEDS: CLOTRIMAZOLE 1% 15 GM CREAM TP SCH ×2 (08:06→21:43)
[2019-10-09] MEDS: BUDESONIDE 0.5 MG/2 ML NEB SOLUTION NEB SCH ×2 (08:55→19:52)
[2019-10-09 12:00] VITALS: BP 150/72
[2019-10-09 13:04] LABS: ABG A-A DIFF O2 163.1 mmHg (10-20.0); ABG BASE EXCESS 3.1 mmol/L (-2.0-3.0); ABG CARBOXYHEMOGLOBIN 0.3 % (0.0-1.5); ABG HCO3 26.8 mmol/L (22.0-26.0); ABG METHEMOGLOBIN 0.3 % (0.0-1.5); ABG OXYGEN CONTENT 14.5 mL/dL (15.0-23.0); ABG OXYGEN SATURATION 93.5 % (95.0-98.0); ABG OXYHEMOGLOBIN 92.9 % (94.0-100.0); ABG PCO2 44 mmHg (35-45); ABG PH 7.413 (7.35-7.450); ABG TOTAL HEMOGLOBIN 11.1 G/dL (12.0-18.0); CPAP, BG 5 cm H2O; O2 DEVICE,BLOOD GAS VENTILATOR (ROOM AIR); PO2, ARTERIAL BG 70.7 mmHg (79.0-87.0); PRESSURE SUPPORT, BG 8 cm H2O; SITE, BLOOD GAS LFT RADIAL; SOURCE, BLOOD GAS ARTERIAL; TEMPERATURE, FAHRENHEIT, BG 99.3 FAHREN (96.0-98.6); VENT MODE, BG CPAP (ROOM AIR)
[2019-10-09 16:00] VITALS: BP 157/74
[2019-10-09] MEDS ORDERED: FentaNYL CITRATE PF 500 MCG in DEXTROSE 5%-WATER 90 ML IV PRN (18:52)
[2019-10-09] MEDS: ACETAMINOPHEN 650 MG/20.3 ML SOLUTION UDCUP NG PRN (19:59)
[2019-10-09 20:00] VITALS: BP 138/66
[2019-10-09] MEDS: MORPHINE SULFATE 2 MG/ML SYRINGE IVP PRN (20:00)
[2019-10-09 21:00] VITALS: BP 140/63
[2019-10-10] VITALS (7 sets, daily range): BP systolic 125–159; BP diastolic 57–72
[2019-10-10] MEDS: ALBUTEROL SULFATE 2.5 MG/0.5 ML NEB SOLUTION NEB SCH ×4 (01:16→19:48)
[2019-10-10] MEDS: IPRATROPIUM BROMIDE 0.5 MG/2.5 ML NEB SOLUTION NEB SCH ×4 (01:16→19:48)
[2019-10-10] MEDS ORDERED: SODIUM CHLORIDE 0.9% 250 ML IV ONE ×2 (02:45→23:10)
[2019-10-10] MEDS: LORazepam 2 MG/ML VIAL IVP PRN (03:02)
[2019-10-10] MEDS: MORPHINE SULFATE 2 MG/ML SYRINGE IVP PRN (04:30)
[2019-10-10 05:13] LABS: BASOPHILS % (AUTO) 0.5 % (0.0-2.0); EOSINOPHILS % (AUTO) 1.9 % (1.0-6.0); HEMATOCRIT 32.6 % (41-53); HEMOGLOBIN 10.6 g/dL (13.5-17.5); LYMPHOCYTES % (AUTO) 16.8 % (22.0-44.0); MEAN CORPUSCULAR HEMOGLOBIN 29.8 pg (26.0-34.0); MEAN CORPUSCULAR HGB CONC 32.6 G/dL (31.0-37.0); MEAN CORPUSCULAR VOLUME 92 fL (80-100); MONOCYTES # (AUTO) 0.5 K/uL (0.1-1.0); MONOCYTES % (AUTO) 8.6 % (2.0-9.0); NEUTROPHILS # (AUTO) 4.3 K/uL (1.8-7.7); NEUTROPHILS % (AUTO) 72.2 % (40.0-70.0); PLATELET COUNT (AUTO) 271 K/uL (150-450); RED BLOOD CELL COUNT(AUTO) 3.56 MIL/uL (4.50-5.90); RED CELL DISTRIBUTION WIDTH 15.3 % (11.5-14.5)
[2019-10-10 05:24] LABS: ALANINE AMINOTRANSFERASE 73 U/L (12-78); ALBUMIN 1.6 g/dL (3.4-5.0); ALKALINE PHOSPHATASE 117 U/L (46-116); ANION GAP 4 mmol/L (8-16); ASPARTATE AMINOTRANSFERASE 74 U/L (15-37); BILIRUBIN,TOTAL 0.2 mg/dL (0.1-1.0); CALCIUM, TOTAL 8.2 mg/dL (8.8-10.5); CARBON DIOXIDE 28 mmol/L (22-29); CHLORIDE 112 mmol/L (98-107); CREATININE 0.67 mg/dL (0.60-1.30); GLOMERULAR FILTR. RATE CALC > 60 mL/min (>60); GLUCOSE,RANDOM 96 mg/dL (70-110); POTASSIUM 4.4 mmol/L (3.5-5.1); SODIUM SERUM 144 mmol/L (136-145); TOTAL PROTEIN, SERUM 5.6 g/dL (6.4-8.2); UREA NITROGEN, BLOOD 11 mg/dL (7-18)
[2019-10-10] MEDS: OSELTAMIVIR PHOSPHATE 75 MG CAPSULE PO SCH ×2 (08:29→21:03)
[2019-10-10] MEDS: THIAMINE HCL 100 MG TABLET PO SCH (08:29)
[2019-10-10] MEDS: MULTIVITAMINS, THERAPEUTIC 15 ML UDCUP GT SCH (08:30)
[2019-10-10] MEDS: HEPARIN SODIUM,PORCINE 5,000 UNITS/ML VIAL SQ SCH ×2 (08:30→16:07)
[2019-10-10] MEDS: CeFAZolin 2 GM/DEXTROSE 50 ML IV SCH ×3 (08:30→23:30)
[2019-10-10] MEDS: RINGERS SOLUTION,LACTATED 1,000 ML IV SCH (08:42)
[2019-10-10] MEDS: BUDESONIDE 0.5 MG/2 ML NEB SOLUTION NEB SCH ×2 (08:50→19:48)
[2019-10-10] MEDS: PANTOPRAZOLE SODIUM 40 MG/VIAL IVP SCH (08:58)
[2019-10-10] MEDS: CLOTRIMAZOLE 1% 15 GM CREAM TP SCH ×2 (09:06→21:46)
[2019-10-10] MEDS: ACETAMINOPHEN 650 MG/20.3 ML SOLUTION UDCUP NG PRN ×2 (09:52→21:02)
[2019-10-11] VITALS: BP 139/82
[2019-10-11] MEDS: RINGERS SOLUTION,LACTATED 1,000 ML IV SCH ×2 (00:54→15:45)
[2019-10-11] MEDS: LORazepam 2 MG/ML VIAL IVP PRN ×2 (01:15→22:29)
[2019-10-11] MEDS: ALBUTEROL SULFATE 2.5 MG/0.5 ML NEB SOLUTION NEB SCH ×4 (01:47→20:03)
[2019-10-11] MEDS: IPRATROPIUM BROMIDE 0.5 MG/2.5 ML NEB SOLUTION NEB SCH ×4 (01:48→20:03)
[2019-10-11 04:00] VITALS: BP 153/67
[2019-10-11 08:00] VITALS: BP 126/70
[2019-10-11] MEDS: MULTIVITAMINS, THERAPEUTIC 15 ML UDCUP GT SCH (08:31)
[2019-10-11] MEDS: PANTOPRAZOLE SODIUM 40 MG/VIAL IVP SCH (08:31)
[2019-10-11] MEDS: HEPARIN SODIUM,PORCINE 5,000 UNITS/ML VIAL SQ SCH ×3 (08:31→17:14)
[2019-10-11] MEDS: OSELTAMIVIR PHOSPHATE 75 MG CAPSULE PO SCH ×2 (08:32→21:09)
[2019-10-11] MEDS: CLOTRIMAZOLE 1% 15 GM CREAM TP SCH ×2 (08:33→21:09)
[2019-10-11] MEDS: CeFAZolin 2 GM/DEXTROSE 50 ML IV SCH ×2 (08:33→15:44)
[2019-10-11] MEDS: THIAMINE HCL 100 MG TABLET PO SCH (08:33)
[2019-10-11] MEDS: BUDESONIDE 0.5 MG/2 ML NEB SOLUTION NEB SCH ×2 (08:50→20:04)
[2019-10-11 09:24] LABS: ABG A-A DIFF O2 174.7 mmHg (10-20.0); ABG BASE EXCESS 1.3 mmol/L (-2.0-3.0); ABG CARBOXYHEMOGLOBIN 0.1 % (0.0-1.5); ABG HCO3 25.7 mmol/L (22.0-26.0); ABG METHEMOGLOBIN 0.3 % (0.0-1.5); ABG OXYGEN CONTENT 14.2 mL/dL (15.0-23.0); ABG OXYGEN SATURATION 94.2 % (95.0-98.0); ABG OXYHEMOGLOBIN 93.8 % (94.0-100.0); ABG PCO2 36 mmHg (35-45); ABG PH 7.458 (7.35-7.450); ABG TOTAL HEMOGLOBIN 10.7 G/dL (12.0-18.0); O2 DEVICE,BLOOD GAS VENTILATOR (ROOM AIR); PO2, ARTERIAL BG 68.8 mmHg (79.0-87.0); SITE, BLOOD GAS RT RADIAL; SOURCE, BLOOD GAS ARTERIAL; TEMPERATURE, FAHRENHEIT, BG 98.6 FAHREN (96.0-98.6); VT, ABG 500 ml
[2019-10-11 09:25] LABS: PEEP,BG 5 cm H2O
[2019-10-11 10:14] LABS: BASOPHILS % (AUTO) 0.4 % (0.0-2.0); EOSINOPHILS % (AUTO) 1.3 % (1.0-6.0); HEMATOCRIT 29.7 % (41-53); HEMOGLOBIN 9.9 g/dL (13.5-17.5); LYMPHOCYTES # (AUTO) 0.9 K/uL (1.0-4.8); LYMPHOCYTES % (AUTO) 12.6 % (22.0-44.0); MEAN CORPUSCULAR HEMOGLOBIN 30.2 pg (26.0-34.0); MEAN CORPUSCULAR HGB CONC 33.2 G/dL (31.0-37.0); MEAN CORPUSCULAR VOLUME 91 fL (80-100); MONOCYTES # (AUTO) 0.5 K/uL (0.1-1.0); MONOCYTES % (AUTO) 6.6 % (2.0-9.0); NEUTROPHILS # (AUTO) 5.7 K/uL (1.8-7.7); NEUTROPHILS % (AUTO) 79.1 % (40.0-70.0); PLATELET COUNT (AUTO) 283 K/uL (150-450); RED BLOOD CELL COUNT(AUTO) 3.26 MIL/uL (4.50-5.90); RED CELL DISTRIBUTION WIDTH 15.2 % (11.5-14.5)
[2019-10-11 10:30] LABS: ANION GAP 6 mmol/L (8-16); CALCIUM, TOTAL 8.6 mg/dL (8.8-10.5); CARBON DIOXIDE 28 mmol/L (22-29); CHLORIDE 110 mmol/L (98-107); GLOMERULAR FILTR. RATE CALC > 60 mL/min (>60); GLUCOSE,RANDOM 115 mg/dL (70-110); POTASSIUM 3.8 mmol/L (3.5-5.1); SODIUM SERUM 144 mmol/L (136-145); UREA NITROGEN, BLOOD 14 mg/dL (7-18)
[2019-10-11 12:00] VITALS: BP 130/62
[2019-10-11 12:01] LABS: ABG A-A DIFF O2 173.8 mmHg (10-20.0); ABG BASE EXCESS 0.9 mmol/L (-2.0-3.0); ABG CARBOXYHEMOGLOBIN 0.3 % (0.0-1.5); ABG HCO3 25.3 mmol/L (22.0-26.0); ABG METHEMOGLOBIN 0.3 % (0.0-1.5); ABG OXYGEN CONTENT 13.4 mL/dL (15.0-23.0); ABG OXYGEN SATURATION 93.7 % (95.0-98.0); ABG OXYHEMOGLOBIN 93.1 % (94.0-100.0); ABG PCO2 38 mmHg (35-45); ABG TOTAL HEMOGLOBIN 10.2 G/dL (12.0-18.0); PO2, ARTERIAL BG 67.9 mmHg (79.0-87.0); SOURCE, BLOOD GAS ARTERIAL; TEMPERATURE, FAHRENHEIT, BG 98.6 FAHREN (96.0-98.6)
[2019-10-11 12:02] LABS: CPAP, BG 0 cm H2O; O2 DEVICE,BLOOD GAS VENTILATOR (ROOM AIR); PEEP,BG 0 cm H2O; PRESSURE SUPPORT, BG 8 cm H2O; SITE, BLOOD GAS RT RADIAL; SPONTANEOUS VT, BG 486 ml; VENT MODE, BG SPONTANEOUS (ROOM AIR)
[2019-10-11 16:00] VITALS: BP 138/68
[2019-10-11] MEDS: MORPHINE SULFATE 2 MG/ML SYRINGE IVP PRN (22:55)
[2019-10-12] MEDS: HEPARIN SODIUM,PORCINE 5,000 UNITS/ML VIAL SQ SCH ×4 (01:33→23:29)
[2019-10-12] MEDS: CeFAZolin 2 GM/DEXTROSE 50 ML IV SCH ×4 (01:33→23:29)
[2019-10-12] MEDS: IPRATROPIUM BROMIDE 0.5 MG/2.5 ML NEB SOLUTION NEB SCH ×4 (01:43→20:02)
[2019-10-12] MEDS: ALBUTEROL SULFATE 2.5 MG/0.5 ML NEB SOLUTION NEB SCH ×4 (01:43→20:01)
[2019-10-12] MEDS: RINGERS SOLUTION,LACTATED 1,000 ML IV SCH ×2 (04:29→17:16)
[2019-10-12 05:06] LABS: BASOPHILS % (AUTO) 0.4 % (0.0-2.0); EOSINOPHILS % (AUTO) 0.9 % (1.0-6.0); HEMATOCRIT 28.6 % (41-53); HEMOGLOBIN 9.6 g/dL (13.5-17.5); LYMPHOCYTES # (AUTO) 1.1 K/uL (1.0-4.8); LYMPHOCYTES % (AUTO) 16.5 % (22.0-44.0); MEAN CORPUSCULAR HEMOGLOBIN 30.5 pg (26.0-34.0); MEAN CORPUSCULAR HGB CONC 33.5 G/dL (31.0-37.0); MEAN CORPUSCULAR VOLUME 91 fL (80-100); MONOCYTES # (AUTO) 0.5 K/uL (0.1-1.0); NEUTROPHILS # (AUTO) 5.2 K/uL (1.8-7.7); NEUTROPHILS % (AUTO) 75.2 % (40.0-70.0); PLATELET COUNT (AUTO) 290 K/uL (150-450); RED BLOOD CELL COUNT(AUTO) 3.14 MIL/uL (4.50-5.90)
[2019-10-12 05:20] LABS: ALANINE AMINOTRANSFERASE 27 U/L (12-78); ALBUMIN 1.7 g/dL (3.4-5.0); ALKALINE PHOSPHATASE 106 U/L (46-116); ANION GAP 6 mmol/L (8-16); ASPARTATE AMINOTRANSFERASE 27 U/L (15-37); BILIRUBIN,TOTAL 0.2 mg/dL (0.1-1.0); CALCIUM, TOTAL 8.7 mg/dL (8.8-10.5); CARBON DIOXIDE 29 mmol/L (22-29); CHLORIDE 110 mmol/L (98-107); CREATININE 0.72 mg/dL (0.60-1.30); GLOMERULAR FILTR. RATE CALC > 60 mL/min (>60); GLUCOSE,RANDOM 111 mg/dL (70-110); POTASSIUM 3.7 mmol/L (3.5-5.1); SODIUM SERUM 145 mmol/L (136-145); TOTAL PROTEIN, SERUM 5.6 g/dL (6.4-8.2)
[2019-10-12 05:36] LABS: UREA NITROGEN, BLOOD 17 mg/dL (7-18)
[2019-10-12 08:00] VITALS: BP 151/64
[2019-10-12] MEDS: BUDESONIDE 0.5 MG/2 ML NEB SOLUTION NEB SCH ×2 (08:43→20:01)
[2019-10-12] MEDS: PANTOPRAZOLE SODIUM 40 MG/VIAL IVP SCH (10:06)
[2019-10-12] MEDS: THIAMINE HCL 100 MG TABLET PO SCH (10:06)
[2019-10-12] MEDS: MULTIVITAMINS, THERAPEUTIC 15 ML UDCUP GT SCH (10:06)
[2019-10-12] MEDS: CLOTRIMAZOLE 1% 15 GM CREAM TP SCH ×2 (10:07→21:53)
[2019-10-12] MEDS: LORazepam 2 MG/ML VIAL IVP PRN (11:00)
[2019-10-12 12:00] VITALS: BP 127/59
[2019-10-12 16:00] VITALS: BP 131/65
[2019-10-12 16:28] LABS: ABG A-A DIFF O2 165.2 mmHg (10-20.0); ABG BASE EXCESS 6.2 mmol/L (-2.0-3.0); ABG CARBOXYHEMOGLOBIN 0.1 % (0.0-1.5); ABG HCO3 29.4 mmol/L (22.0-26.0); ABG METHEMOGLOBIN 0.3 % (0.0-1.5); ABG OXYGEN SATURATION 92.5 % (95.0-98.0); ABG OXYHEMOGLOBIN 92.1 % (94.0-100.0); ABG PCO2 46 mmHg (35-45); ABG PH 7.439 (7.35-7.450); PO2, ARTERIAL BG 66.6 mmHg (79.0-87.0); SOURCE, BLOOD GAS ARTERIAL; TEMPERATURE, FAHRENHEIT, BG 99.6 FAHREN (96.0-98.6)
[2019-10-12 16:29] LABS: O2 DEVICE,BLOOD GAS VENTILATOR (ROOM AIR); SITE, BLOOD GAS RT RADIAL; VENT MODE, BG CPAP (ROOM AIR)
[2019-10-12 16:32] LABS: CPAP, BG 0 cm H2O; PRESSURE SUPPORT, BG 10 cm H2O
[2019-10-12 19:46] LABS: APPEARANCE,URINE CLEAR (CLEAR); BILIRUBIN,URINE NEGATIVE (NEGATIVE); GLUCOSE, URINE (UA) NEGATIVE (NEGATIVE); KETONES,URINE NEGATIVE (NEGATIVE); LEUKOCYTE ESTERASE ,URINE NEGATIVE (NEGATIVE); NITRATE,URINE NEGATIVE (NEGATIVE); OCCULT BLOOD,URINE NEGATIVE (NEGATIVE); PROTEIN,URINE NEGATIVE (NEGATIVE); UROBILINOGEN,URINE 0.2 mg/dL (<=1.0)
[2019-10-12 20:00] LABS: BACTERIA,URINE Few /HPF (None Seen); SQUAMOUS EPITHELIAL CELL,UR Few /LPF (None Seen)
[2019-10-12 20:04] LABS: INFLUENZA TYPE A NEGATIVE FOR TYPE A (NEGATIVE); INFLUENZA TYPE B NEGATIVE FOR TYPE B (NEGATIVE)
[2019-10-13] VITALS: BP 138/57
[2019-10-13] MEDS: MORPHINE SULFATE 2 MG/ML SYRINGE IVP PRN ×2 (00:09→20:43)
[2019-10-13] MEDS: LORazepam 2 MG/ML VIAL IVP PRN (00:10)
[2019-10-13 01:00] VITALS: BP 132/59
[2019-10-13] MEDS: ALBUTEROL SULFATE 2.5 MG/0.5 ML NEB SOLUTION NEB SCH ×4 (02:19→19:44)
[2019-10-13] MEDS: IPRATROPIUM BROMIDE 0.5 MG/2.5 ML NEB SOLUTION NEB SCH ×4 (02:19→19:45)
[2019-10-13 04:00] VITALS: BP 127/61
[2019-10-13 05:59] LABS: BASOPHILS % (AUTO) 0.6 % (0.0-2.0); EOSINOPHILS % (AUTO) 0.9 % (1.0-6.0); HEMATOCRIT 30.9 % (41-53); HEMOGLOBIN 10.1 g/dL (13.5-17.5); LYMPHOCYTES # (AUTO) 1.5 K/uL (1.0-4.8); LYMPHOCYTES % (AUTO) 23.9 % (22.0-44.0); MEAN CORPUSCULAR HEMOGLOBIN 30.1 pg (26.0-34.0); MEAN CORPUSCULAR HGB CONC 32.8 G/dL (31.0-37.0); MEAN CORPUSCULAR VOLUME 92 fL (80-100); MONOCYTES # (AUTO) 0.7 K/uL (0.1-1.0); MONOCYTES % (AUTO) 10.7 % (2.0-9.0); NEUTROPHILS # (AUTO) 4.1 K/uL (1.8-7.7); NEUTROPHILS % (AUTO) 63.9 % (40.0-70.0); PLATELET COUNT (AUTO) 306 K/uL (150-450); RED BLOOD CELL COUNT(AUTO) 3.36 MIL/uL (4.50-5.90); RED CELL DISTRIBUTION WIDTH 15.2 % (11.5-14.5)
[2019-10-13 06:00] LABS: ANION GAP 3 mmol/L (8-16); CALCIUM, TOTAL 8.9 mg/dL (8.8-10.5); CARBON DIOXIDE 32 mmol/L (22-29); CHLORIDE 110 mmol/L (98-107); CREATININE 0.83 mg/dL (0.60-1.30); GLOMERULAR FILTR. RATE CALC > 60 mL/min (>60); GLUCOSE,RANDOM 99 mg/dL (70-110); POTASSIUM 4.3 mmol/L (3.5-5.1); SODIUM SERUM 145 mmol/L (136-145); UREA NITROGEN, BLOOD 16 mg/dL (7-18)
[2019-10-13] MEDS: RINGERS SOLUTION,LACTATED 1,000 ML IV SCH ×2 (06:32→22:27)
[2019-10-13 08:00] VITALS: BP 167/69
[2019-10-13] MEDS: CeFAZolin 2 GM/DEXTROSE 50 ML IV SCH ×2 (08:04→16:05)
[2019-10-13] MEDS: BUDESONIDE 0.5 MG/2 ML NEB SOLUTION NEB SCH ×2 (08:05→19:44)
[2019-10-13] MEDS: HEPARIN SODIUM,PORCINE 5,000 UNITS/ML VIAL SQ SCH ×2 (08:05→16:05)
[2019-10-13] MEDS: MULTIVITAMINS, THERAPEUTIC 15 ML UDCUP GT SCH (09:35)
[2019-10-13] MEDS: PANTOPRAZOLE SODIUM 40 MG/VIAL IVP SCH (09:35)
[2019-10-13] MEDS: THIAMINE HCL 100 MG TABLET PO SCH (09:35)
[2019-10-13] MEDS: CLOTRIMAZOLE 1% 15 GM CREAM TP SCH ×2 (09:36→22:27)
[2019-10-13 11:04] LABS: C.DIFF GDH ANTIGEN, Stool Negative (Negative); C.DIFF TOXINS A&B, Stool Negative (Negative)
[2019-10-13 12:00] VITALS: BP 123/55
[2019-10-13 14:03] LABS: ABG BASE EXCESS 4.9 mmol/L (-2.0-3.0); ABG HCO3 28.2 mmol/L (22.0-26.0); ABG METHEMOGLOBIN 0.3 % (0.0-1.5); ABG OXYGEN CONTENT 14.3 mL/dL (15.0-23.0); ABG OXYGEN SATURATION 93.1 % (95.0-98.0); ABG OXYHEMOGLOBIN 92.8 % (94.0-100.0); ABG PCO2 46 mmHg (35-45); ABG TOTAL HEMOGLOBIN 10.9 G/dL (12.0-18.0); PO2, ARTERIAL BG 67.8 mmHg (79.0-87.0); SOURCE, BLOOD GAS ARTERIAL; TEMPERATURE, FAHRENHEIT, BG 98.8 FAHREN (96.0-98.6)
[2019-10-13 16:00] VITALS: BP 130/62
[2019-10-13 16:59] LABS: O2 DEVICE,BLOOD GAS VENTILATOR (ROOM AIR); PEEP,BG 0 cm H2O; SITE, BLOOD GAS LFT RADIAL; SPONTANEOUS VT, BG 281 ml; VENT MODE, BG CPAP (ROOM AIR)
[2019-10-13 17:00] LABS: PRESSURE SUPPORT, BG 8 cm H2O
[2019-10-14] MEDS: CeFAZolin 2 GM/DEXTROSE 50 ML IV SCH ×4 (01:35→23:24)
[2019-10-14] MEDS: HEPARIN SODIUM,PORCINE 5,000 UNITS/ML VIAL SQ SCH ×4 (01:35→23:24)
[2019-10-14] MEDS: ALBUTEROL SULFATE 2.5 MG/0.5 ML NEB SOLUTION NEB SCH ×4 (01:55→19:49)
[2019-10-14] MEDS: IPRATROPIUM BROMIDE 0.5 MG/2.5 ML NEB SOLUTION NEB SCH ×4 (01:55→19:49)
[2019-10-14 04:02] VITALS: BP 114/60
[2019-10-14 05:22] LABS: ABG A-A DIFF O2 57.9 mmHg (10-20.0); ABG BASE EXCESS -0.7 mmol/L (-2.0-3.0); ABG CARBOXYHEMOGLOBIN 0.1 % (0.0-1.5); ABG HCO3 24.2 mmol/L (22.0-26.0); ABG METHEMOGLOBIN 0.3 % (0.0-1.5); ABG OXYGEN CONTENT 11.9 mL/dL (15.0-23.0); ABG OXYGEN SATURATION 97.6 % (95.0-98.0); ABG OXYHEMOGLOBIN 97.2 % (94.0-100.0); ABG PCO2 31 mmHg (35-45); ABG PH 7.483 (7.35-7.450); ABG TOTAL HEMOGLOBIN 8.6 G/dL (12.0-18.0); PO2, ARTERIAL BG 104.8 mmHg (79.0-87.0); SOURCE, BLOOD GAS ARTERIAL; TEMPERATURE, FAHRENHEIT, BG 99.4 FAHREN (96.0-98.6)
[2019-10-14 05:23] LABS: O2 DEVICE,BLOOD GAS CANNULA (ROOM AIR); SITE, BLOOD GAS RT RADIAL
[2019-10-14 07:29] LABS: BASOPHILS % (AUTO) 0.5 % (0.0-2.0); EOSINOPHILS % (AUTO) 0.8 % (1.0-6.0); HEMATOCRIT 27.8 % (41-53); HEMOGLOBIN 9.2 g/dL (13.5-17.5); LYMPHOCYTES # (AUTO) 1.3 K/uL (1.0-4.8); LYMPHOCYTES % (AUTO) 20.8 % (22.0-44.0); MEAN CORPUSCULAR HEMOGLOBIN 30.4 pg (26.0-34.0); MEAN CORPUSCULAR VOLUME 92 fL (80-100); MONOCYTES # (AUTO) 0.5 K/uL (0.1-1.0); MONOCYTES % (AUTO) 7.9 % (2.0-9.0); NEUTROPHILS # (AUTO) 4.3 K/uL (1.8-7.7); PLATELET COUNT (AUTO) 343 K/uL (150-450); RED BLOOD CELL COUNT(AUTO) 3.03 MIL/uL (4.50-5.90); RED CELL DISTRIBUTION WIDTH 15.1 % (11.5-14.5)
[2019-10-14] MEDS ORDERED: SODIUM CHLORIDE 0.9% 250 ML IV ONE (07:29)
[2019-10-14 07:41] LABS: ANION GAP 5 mmol/L (8-16); CALCIUM, TOTAL 8.5 mg/dL (8.8-10.5); CARBON DIOXIDE 29 mmol/L (22-29); CHLORIDE 111 mmol/L (98-107); CREATININE 0.59 mg/dL (0.60-1.30); GLOMERULAR FILTR. RATE CALC > 60 mL/min (>60); GLUCOSE,RANDOM 95 mg/dL (70-110); POTASSIUM 4.2 mmol/L (3.5-5.1); SODIUM SERUM 145 mmol/L (136-145); UREA NITROGEN, BLOOD 20 mg/dL (7-18)
[2019-10-14] MEDS: MULTIVITAMINS, THERAPEUTIC 15 ML UDCUP GT SCH (07:47)
[2019-10-14] MEDS: THIAMINE HCL 100 MG TABLET PO SCH (07:48)
[2019-10-14 08:00] VITALS: BP 140/66
[2019-10-14] MEDS: RINGERS SOLUTION,LACTATED 1,000 ML IV SCH ×2 (08:00→21:12)
[2019-10-14] MEDS: CLOTRIMAZOLE 1% 15 GM CREAM TP SCH ×2 (08:00→20:42)
[2019-10-14] MEDS: PANTOPRAZOLE SODIUM 40 MG/VIAL IVP SCH (08:00)
[2019-10-14] MEDS: BUDESONIDE 0.5 MG/2 ML NEB SOLUTION NEB SCH ×2 (08:52→19:49)
[2019-10-14 12:00] VITALS: BP 142/57
[2019-10-14 16:00] VITALS: BP 156/139
[2019-10-14 20:00] VITALS: BP 149/71
[2019-10-15] VITALS (7 sets, daily range): BP systolic 99–170; BP diastolic 47–75
[2019-10-15] MEDS: IPRATROPIUM BROMIDE 0.5 MG/2.5 ML NEB SOLUTION NEB SCH ×4 (01:49→19:19)
[2019-10-15] MEDS: ALBUTEROL SULFATE 2.5 MG/0.5 ML NEB SOLUTION NEB SCH ×4 (01:49→19:19)
[2019-10-15 05:45] LABS: BASOPHILS % (AUTO) 1.1 % (0.0-2.0); EOSINOPHILS % (AUTO) 0.9 % (1.0-6.0); HEMOGLOBIN 9.4 g/dL (13.5-17.5); LYMPHOCYTES # (AUTO) 1.3 K/uL (1.0-4.8); LYMPHOCYTES % (AUTO) 23.7 % (22.0-44.0); MEAN CORPUSCULAR HEMOGLOBIN 29.9 pg (26.0-34.0); MEAN CORPUSCULAR HGB CONC 32.3 G/dL (31.0-37.0); MEAN CORPUSCULAR VOLUME 93 fL (80-100); MONOCYTES # (AUTO) 0.4 K/uL (0.1-1.0); MONOCYTES % (AUTO) 7.7 % (2.0-9.0); NEUTROPHILS # (AUTO) 3.5 K/uL (1.8-7.7); NEUTROPHILS % (AUTO) 66.6 % (40.0-70.0); PLATELET COUNT (AUTO) 344 K/uL (150-450); RED BLOOD CELL COUNT(AUTO) 3.14 MIL/uL (4.50-5.90); RED CELL DISTRIBUTION WIDTH 14.8 % (11.5-14.5)
[2019-10-15 06:08] LABS: ANION GAP 6 mmol/L (8-16); CALCIUM, TOTAL 8.7 mg/dL (8.8-10.5); CARBON DIOXIDE 30 mmol/L (22-29); CHLORIDE 109 mmol/L (98-107); CREATININE 0.64 mg/dL (0.60-1.30); GLOMERULAR FILTR. RATE CALC > 60 mL/min (>60); GLUCOSE,RANDOM 82 mg/dL (70-110); POTASSIUM 4.2 mmol/L (3.5-5.1); SODIUM SERUM 145 mmol/L (136-145); UREA NITROGEN, BLOOD 13 mg/dL (7-18)
[2019-10-15] MEDS: BUDESONIDE 0.5 MG/2 ML NEB SOLUTION NEB SCH ×2 (07:34→19:19)
[2019-10-15] MEDS: HEPARIN SODIUM,PORCINE 5,000 UNITS/ML VIAL SQ SCH ×2 (08:19→15:57)
[2019-10-15] MEDS: CeFAZolin 2 GM/DEXTROSE 50 ML IV SCH (08:20)
[2019-10-15] MEDS: RINGERS SOLUTION,LACTATED 1,000 ML IV SCH (12:57)
[2019-10-15] MEDS: PANTOPRAZOLE SODIUM 40 MG/VIAL IVP SCH (12:58)
[2019-10-15] MEDS: THIAMINE HCL 100 MG TABLET PO SCH (12:58)
[2019-10-15] MEDS: MULTIVITAMINS, THERAPEUTIC 15 ML UDCUP GT SCH (13:05)
[2019-10-15] MEDS: CLOTRIMAZOLE 1% 15 GM CREAM TP SCH ×2 (13:15→19:54)
[2019-10-15] MEDS: LEVOFLOXACIN 750 MG/D5% WATER 150 ML IV SCH (13:19)
[2019-10-16] MEDS: HEPARIN SODIUM,PORCINE 5,000 UNITS/ML VIAL SQ SCH ×3 (00:26→16:51)
[2019-10-16] MEDS: RINGERS SOLUTION,LACTATED 1,000 ML IV SCH ×2 (00:26→14:48)
[2019-10-16] MEDS: ALBUTEROL SULFATE 2.5 MG/0.5 ML NEB SOLUTION NEB SCH ×4 (02:11→19:21)
[2019-10-16] MEDS: IPRATROPIUM BROMIDE 0.5 MG/2.5 ML NEB SOLUTION NEB SCH ×4 (02:11→19:21)
[2019-10-16 04:06] VITALS: BP 106/53
[2019-10-16 07:29] VITALS: BP 128/79
[2019-10-16] MEDS: BUDESONIDE 0.5 MG/2 ML NEB SOLUTION NEB SCH ×2 (07:33→19:21)
[2019-10-16] MEDS: MULTIVITAMINS, THERAPEUTIC 15 ML UDCUP GT SCH (08:25)
[2019-10-16] MEDS: CLOTRIMAZOLE 1% 15 GM CREAM TP SCH ×2 (08:25→21:18)
[2019-10-16] MEDS: THIAMINE HCL 100 MG TABLET PO SCH (08:25)
[2019-10-16] MEDS: PANTOPRAZOLE SODIUM 40 MG/VIAL IVP SCH (08:26)
[2019-10-16 11:02] VITALS: BP 103/60
[2019-10-16] MEDS: LEVOFLOXACIN 750 MG/D5% WATER 150 ML IV SCH (14:48)
[2019-10-16 15:45] VITALS: BP 95/53
[2019-10-16 20:16] VITALS: BP 102/54
[2019-10-17] MEDS: HEPARIN SODIUM,PORCINE 5,000 UNITS/ML VIAL SQ SCH ×4 (00:01→23:52)
[2019-10-17 00:29] VITALS: BP 109/53
[2019-10-17] MEDS: ALBUTEROL SULFATE 2.5 MG/0.5 ML NEB SOLUTION NEB SCH ×4 (02:13→19:28)
[2019-10-17] MEDS: IPRATROPIUM BROMIDE 0.5 MG/2.5 ML NEB SOLUTION NEB SCH ×4 (02:13→19:28)
[2019-10-17 04:09] VITALS: BP 110/63
[2019-10-17] MEDS: RINGERS SOLUTION,LACTATED 1,000 ML IV SCH ×2 (06:42→23:52)
[2019-10-17 07:28] VITALS: BP 106/68
[2019-10-17] MEDS: BUDESONIDE 0.5 MG/2 ML NEB SOLUTION NEB SCH ×2 (07:33→19:28)
[2019-10-17] MEDS: MULTIVITAMINS, THERAPEUTIC 15 ML UDCUP GT SCH (08:50)
[2019-10-17] MEDS: PANTOPRAZOLE SODIUM 40 MG/VIAL IVP SCH (08:50)
[2019-10-17] MEDS: THIAMINE HCL 100 MG TABLET PO SCH (08:50)
[2019-10-17] MEDS: CLOTRIMAZOLE 1% 15 GM CREAM TP SCH ×2 (08:51→20:09)
[2019-10-17 12:04] VITALS: BP 97/69
[2019-10-17] MEDS: LEVOFLOXACIN 750 MG/D5% WATER 150 ML IV SCH (15:10)
[2019-10-17 20:20] VITALS: BP 117/56
[2019-10-18 00:40] VITALS: BP 128/74
[2019-10-18] MEDS: ALBUTEROL SULFATE 2.5 MG/0.5 ML NEB SOLUTION NEB SCH ×3 (01:37→14:59)
[2019-10-18] MEDS: IPRATROPIUM BROMIDE 0.5 MG/2.5 ML NEB SOLUTION NEB SCH ×3 (01:37→14:59)
[2019-10-18 05:03] VITALS: BP 129/64
[2019-10-18] MEDS: ACETAMINOPHEN 650 MG/20.3 ML SOLUTION UDCUP NG PRN (05:55)
[2019-10-18 07:38] VITALS: BP 117/41
[2019-10-18] MEDS: BUDESONIDE 0.5 MG/2 ML NEB SOLUTION NEB SCH (08:01)
[2019-10-18] MEDS: CLOTRIMAZOLE 1% 15 GM CREAM TP SCH (08:24)
[2019-10-18] MEDS: PANTOPRAZOLE SODIUM 40 MG/VIAL IVP SCH (08:24)
[2019-10-18] MEDS: HEPARIN SODIUM,PORCINE 5,000 UNITS/ML VIAL SQ SCH ×2 (08:24→15:53)
[2019-10-18] MEDS: MULTIVITAMINS, THERAPEUTIC 15 ML UDCUP GT SCH (08:24)
[2019-10-18] MEDS: THIAMINE HCL 100 MG TABLET PO SCH (08:24)
[2019-10-18] MEDS ORDERED: BUDE0.5A3 NEB (10:32)
[2019-10-18] MEDS ORDERED: ALBU8HFA IH (10:32)
[2019-10-18] MEDS ORDERED: BUTE12CR TP (10:33)
[2019-10-18] MEDS ORDERED: HEPA500018 SQ (10:33)
[2019-10-18] MEDS ORDERED: IPRAHFA IH ×2 (10:34→10:41)
[2019-10-18] MEDS ORDERED: LEVO-72 PO (10:35)
[2019-10-18] MEDS ORDERED: MULT-711 PO (10:36)
[2019-10-18] MEDS ORDERED: PANT40TA25 PO (10:37)
[2019-10-18] MEDS ORDERED: THIA100T92 PO (10:38)
[2019-10-18] MEDS ORDERED: ACET-66 PO (10:39)
[2019-10-18] MEDS ORDERED: A20IH1 IH (10:40)
[2019-10-18 11:22] VITALS: BP 111/65
[2019-10-18] MEDS: LEVOFLOXACIN 750 MG/D5% WATER 150 ML IV SCH (15:53)
== END 2019-10-18 16:50 | DRG 870 ==
LOC: EMS 12:02 → 5S 16:04 → ICU 10-03 03:05 → 5N 10-15 08:30
PROVIDERS: ADMIT Internal Medicine; ATTEND Internal Medicine
PROC: 5A09357 Assistance with Respiratory Ventilation, Less than 24 Consecutive Hours, Continuous Positive Airway Pressure (ICD-10-PCS; 2019-10-02)
PROC: 5A09357 Assistance with Respiratory Ventilation, Less than 24 Consecutive Hours, Continuous Positive Airway Pressure (ICD-10-PCS; 2019-10-03)
PROC: 5A09357 Assistance with Respiratory Ventilation, Less than 24 Consecutive Hours, Continuous Positive Airway Pressure (ICD-10-PCS; 2019-10-04)
PROC: 5A09357 Assistance with Respiratory Ventilation, Less than 24 Consecutive Hours, Continuous Positive Airway Pressure (ICD-10-PCS; 2019-10-05)
PROC: 5A1955Z Respiratory Ventilation, Greater than 96 Consecutive Hours (ICD-10-PCS; principal; 2019-10-06)
PROC: 0BH17EZ Insertion of Endotracheal Airway into Trachea, Via Natural or Artificial Opening (ICD-10-PCS; 2019-10-06)
PROC: 5A09357 Assistance with Respiratory Ventilation, Less than 24 Consecutive Hours, Continuous Positive Airway Pressure (ICD-10-PCS; 2019-10-06)
DX: A41.89 Other specified sepsis (principal); J96.01 Acute respiratory failure with hypoxia; J69.0 Pneumonitis due to inhalation of food and vomit; E43 Unspecified severe protein-calorie malnutrition; G92 Toxic encephalopathy; J10.01 Influenza due to other identified influenza virus with the same other identified influenza virus pneumonia; E87.0 Hyperosmolality and hypernatremia; N17.9 Acute kidney failure, unspecified; R65.20 Severe sepsis without septic shock; E83.42 Hypomagnesemia; F03.90 Unspecified dementia, unspecified severity, without behavioral disturbance, psychotic disturbance, mood disturbance, and anxiety; D63.8 Anemia in other chronic diseases classified elsewhere; R53.81 Other malaise; R55 Syncope and collapse; E83.39 Other disorders of phosphorus metabolism; Z68.23 Body mass index [BMI] 23.0-23.9, adult; M46.04 Spinal enthesopathy, thoracic region; B96.1 Klebsiella pneumoniae [K. pneumoniae] as the cause of diseases classified elsewhere
CPT/HCPCS: 36245; 36569; 36600; 70450; 71250; 76937; 78582; 82805; 83605; 83735; 84100; 84132; 84145; 86738; 87040; 87070; 87081; 87086; 87205; 87324; 87449; 87804; 87899; 92526; 92610; 93005; 93306; 93970; 94002; 94003; 94640; 94660; 96365; 97116; 97162; 97166; 97530; 97535; 99291; A9539; A9540; C9113; G0378; G0480; G0481; J0456; J0690; J1644; J1956; J2060; J2270; J2543; J2704; J3370; J3475; J3480; J3490; J7030; J7040; J7050; J7060; J7120; P9046

== ENCOUNTER 2019-10-20 15:05 | Inpatient (IN) | payer MEDICARE, OTHER ==
[~2019-10-20] VITALS: Ht 172.7 cm; Wt 73.0 kg
[~2019-10-20 15:05] MED LIST changes: +A20IH1 IH; -ABX; +ACET-66 PO; +ALBU8HFA IH; +BUDE0.5A3 NEB; +BUTE12CR TP; -EYE DROPS; +HEPA500018 SQ; +IPRAHFA IH; +LEVO-72 PO; +MULT-711 PO; +PANT40TA25 PO; +THIA100T92 PO
[2019-10-20] MEDS ORDERED: LEVO-72 PO (15:56)
[2019-10-20] MEDS ORDERED: SODIUM CHLORIDE 0.9% 2,000 ML IV ONE (16:38)
[2019-10-20] MEDS ORDERED: 0.9% SODIUM CHLORIDE 10 ML SYRINGE IVP PRN (16:45)
[2019-10-20 17:02] LABS: BASOPHILS % (AUTO) 0.9 % (0.0-2.0); EOSINOPHILS % (AUTO) 0.6 % (1.0-6.0); HEMATOCRIT 31.3 % (41-53); HEMOGLOBIN 10.4 g/dL (13.5-17.5); LYMPHOCYTES % (AUTO) 19.8 % (22.0-44.0); MEAN CORPUSCULAR HEMOGLOBIN 30.9 pg (26.0-34.0); MEAN CORPUSCULAR HGB CONC 33.3 G/dL (31.0-37.0); MEAN CORPUSCULAR VOLUME 93 fL (80-100); MONOCYTES # (AUTO) 0.4 K/uL (0.1-1.0); MONOCYTES % (AUTO) 8.8 % (2.0-9.0); NEUTROPHILS # (AUTO) 3.4 K/uL (1.8-7.7); NEUTROPHILS % (AUTO) 69.9 % (40.0-70.0); PLATELET COUNT (AUTO) 379 K/uL (150-450); RED BLOOD CELL COUNT(AUTO) 3.37 MIL/uL (4.50-5.90); RED CELL DISTRIBUTION WIDTH 15.3 % (11.5-14.5)
[2019-10-20 17:14] LABS: ANION GAP 6 mmol/L (8-16); CALCIUM, TOTAL 9.6 mg/dL (8.8-10.5); CARBON DIOXIDE 31 mmol/L (22-29); CHLORIDE 105 mmol/L (98-107); CREATININE 0.81 mg/dL (0.60-1.30); GLOMERULAR FILTR. RATE CALC > 60 mL/min (>60); GLUCOSE,RANDOM 90 mg/dL (70-110); POTASSIUM 4.2 mmol/L (3.5-5.1); SODIUM SERUM 142 mmol/L (136-145); UREA NITROGEN, BLOOD 11 mg/dL (7-18)
[2019-10-20 17:17] LABS: INR 1.1 (0.9-1.1); PROTHROMBIN TIME 11.5 SEC (9.4-11.6)
[2019-10-20 17:20] LABS: ALANINE AMINOTRANSFERASE 26 U/L (12-78); ALBUMIN 2.3 g/dL (3.4-5.0); ALKALINE PHOSPHATASE 107 U/L (46-116); ASPARTATE AMINOTRANSFERASE 26 U/L (15-37); BILIRUBIN,TOTAL 0.5 mg/dL (0.1-1.0); CREATINE KINASE, TOTAL ONLY 52 U/L (39-308); TOTAL PROTEIN, SERUM 6.9 g/dL (6.4-8.2)
[2019-10-20 17:23] LABS: B-TYPE NATRIURETIC PEPTIDE 100 pg/mL (0-100)
[2019-10-20 17:29] LABS: GLUCOSE,POINT OF CARE 97 MG/DL (70-110)
[2019-10-20 17:30] LABS: LACTIC ACID 0.6 mmol/L (0.4-2.0)
[2019-10-20 21:05] VITALS: BP 107/64
[2019-10-20] MEDS ORDERED: *CLINICAL-LEVOFLOXACIN IVPB DOSING CLINICAL ONE (21:30)
[2019-10-20] MEDS ORDERED: ONDANSETRON HCL 4 MG/2 ML VIAL IVP PRN (21:30)
[2019-10-20] MEDS ORDERED: ACETAMINOPHEN 325 MG TABLET PO PRN (21:30)
[2019-10-20] MEDS ORDERED: HYDROCODONE/ACETAMINOPHEN 5-325 MG TABLET PO PRN (21:30)
[2019-10-20] MEDS ORDERED: BISACODYL 10 MG RECTAL RECTAL SUPPOSITORY PR PRN (21:30)
[2019-10-20] MEDS ORDERED: ZOLPIDEM TARTRATE 5 MG TABLET PO PRN (21:30)
[2019-10-20] MEDS ORDERED: MAGNESIUM HYDROXIDE SUSPENSION 30 ML UDCUP PO PRN (21:30)
[2019-10-20] MEDS ORDERED: SODIUM CHLORIDE 0.9% 1,000 ML IV ONE (21:30)
[2019-10-20] MEDS ORDERED: MORPHINE SULFATE 2 MG/ML SYRINGE IVP PRN (21:30)
[2019-10-20] MEDS: LEVOFLOXACIN 750 MG/D5% WATER 150 ML IV SCH (22:06)
[2019-10-20] MEDS: HEPARIN SODIUM,PORCINE 5,000 UNITS/ML VIAL SQ SCH (23:10)
[2019-10-20 23:49] VITALS: BP 118/60
[2019-10-21 04:56] VITALS: BP 112/62
[2019-10-21] MEDS: HEPARIN SODIUM,PORCINE 5,000 UNITS/ML VIAL SQ SCH ×2 (08:10→15:12)
[2019-10-21 08:16] VITALS: BP 126/56
[2019-10-21] MEDS: PANTOPRAZOLE SODIUM 40 MG DR TABLET PO SCH (09:00)
[2019-10-21] MEDS: DOCUSATE SODIUM 100 MG CAPSULE PO SCH ×2 (09:00→20:39)
[2019-10-21 12:17] VITALS: BP 113/68
[2019-10-21 15:53] VITALS: BP 107/68
[2019-10-21] MEDS ORDERED: SODIUM CHLORIDE 0.9% 1,000 ML IV ONE (16:45)
[2019-10-21 20:25] VITALS: BP 111/60
[2019-10-21] MEDS: LEVOFLOXACIN 750 MG/D5% WATER 150 ML IV SCH (21:00)
[2019-10-21] MEDS: ALBUTEROL SULFATE 2.5 MG/0.5 ML NEB SOLUTION NEB PRN (23:45)
[2019-10-21] MEDS: IPRATROPIUM BROMIDE 0.5 MG/2.5 ML NEB SOLUTION NEB PRN (23:45)
[2019-10-22 00:46] VITALS: BP 110/60
[2019-10-22 04:02] VITALS: BP 108/55
[2019-10-22 05:06] LABS: APPEARANCE,URINE CLEAR (CLEAR); BILIRUBIN,URINE NEGATIVE (NEGATIVE); GLUCOSE, URINE (UA) NEGATIVE (NEGATIVE); KETONES,URINE TRACE mg/dL (NEGATIVE); LEUKOCYTE ESTERASE ,URINE NEGATIVE (NEGATIVE); NITRATE,URINE NEGATIVE (NEGATIVE); OCCULT BLOOD,URINE NEGATIVE (NEGATIVE); PH,URINE 7.5 (5.0-8.0); PROTEIN,URINE NEGATIVE (NEGATIVE); UROBILINOGEN,URINE 0.2 mg/dL (<=1.0)
[2019-10-22 07:41] VITALS: BP 150/63
[2019-10-22] MEDS: HEPARIN SODIUM,PORCINE 5,000 UNITS/ML VIAL SQ SCH ×2 (07:58)
[2019-10-22] MEDS: DOCUSATE SODIUM 100 MG CAPSULE PO SCH ×2 (07:59→20:35)
[2019-10-22] MEDS: PANTOPRAZOLE SODIUM 40 MG DR TABLET PO SCH (07:59)
[2019-10-22] MEDS ORDERED: SODIUM CHLORIDE 0.9% 1,000 ML IV ONE (11:15)
[2019-10-22 11:23] VITALS: BP 118/97
[2019-10-22 16:11] VITALS: BP 113/52
[2019-10-22 19:32] VITALS: BP 115/62
[2019-10-22] MEDS: LEVOFLOXACIN 750 MG/D5% WATER 150 ML IV SCH (21:02)
[2019-10-22] MEDS ORDERED: SODIUM CHLORIDE 0.9% 250 ML IV ONE (21:04)
[2019-10-23 00:01] VITALS: BP 111/65
[2019-10-23] MEDS: IPRATROPIUM BROMIDE 0.5 MG/2.5 ML NEB SOLUTION NEB PRN (02:07)
[2019-10-23] MEDS: ALBUTEROL SULFATE 2.5 MG/0.5 ML NEB SOLUTION NEB PRN (02:07)
[2019-10-23 03:06] LABS: GLUCOMETER DEV NAME(LOC) 5N.1; GLUCOSE,POINT OF CARE 96 MG/DL (70-110)
[2019-10-23 04:06] VITALS: BP 111/65
[2019-10-23] MEDS ORDERED: LIDOCAINE 1% 10 ML VIAL IM ONE (05:22)
[2019-10-23] MEDS ORDERED: PROPOFOL 1% 20 ML VIAL IVP ONE (05:22)
[2019-10-23 07:26] VITALS: BP 116/59
[2019-10-23] MEDS: DOCUSATE SODIUM 100 MG CAPSULE PO SCH ×2 (08:35→19:50)
[2019-10-23] MEDS: PANTOPRAZOLE SODIUM 40 MG DR TABLET PO SCH (08:35)
[2019-10-23] MEDS: POVIDONE-IODINE 10% 120 ML SOLUTION TP SCH (08:53)
[2019-10-23] MEDS: HYDROGEN PEROXIDE 473 ML SOLUTION TP SCH (08:53)
[2019-10-23] MEDS ORDERED: POVIDONE-IODINE 10% 120 ML SOLUTION TP SCH (09:00)
[2019-10-23] MEDS ORDERED: HYDROGEN PEROXIDE 473 ML SOLUTION TP SCH (09:00)
[2019-10-23 10:39] VITALS: BP 108/67
[2019-10-23 14:09] LABS: HEMATOCRIT 33.1 % (41-53); HEMOGLOBIN 10.9 g/dL (13.5-17.5); MEAN CORPUSCULAR HEMOGLOBIN 30.1 pg (26.0-34.0); MEAN CORPUSCULAR HGB CONC 32.9 G/dL (31.0-37.0); MEAN CORPUSCULAR VOLUME 91 fL (80-100); PLATELET COUNT (AUTO) 347 K/uL (150-450); RED BLOOD CELL COUNT(AUTO) 3.62 MIL/uL (4.50-5.90); RED CELL DISTRIBUTION WIDTH 14.3 % (11.5-14.5)
[2019-10-23 14:25] LABS: ANION GAP 4 mmol/L (8-16); CARBON DIOXIDE 33 mmol/L (22-29); CHLORIDE 107 mmol/L (98-107); CREATININE 0.93 mg/dL (0.60-1.30); GLOMERULAR FILTR. RATE CALC > 60 mL/min (>60); GLUCOSE,RANDOM 148 mg/dL (70-110); POTASSIUM 3.8 mmol/L (3.5-5.1); SODIUM SERUM 144 mmol/L (136-145); UREA NITROGEN, BLOOD 8 mg/dL (7-18)
[2019-10-23 14:33] LABS: CALCIUM, TOTAL 8.6 mg/dL (8.8-10.5)
[2019-10-23 15:13] LABS: BAND NEUTROPHILS % (MANUAL) 7 % (0-5); LYMPHOCYTES % (MANUAL) 13 % (22-44); MONOCYTES % (MANUAL) 9 % (2-9); SEGMENTED NEUTROPHILS % 71 % (40-70)
[2019-10-23 15:50] VITALS: BP 94/57
[2019-10-23 19:15] VITALS: BP 96/52
[2019-10-23] MEDS: LEVOFLOXACIN 750 MG/D5% WATER 150 ML IV SCH (21:04)
[2019-10-24] VITALS (7 sets, daily range): BP systolic 94–111; BP diastolic 52–63
[2019-10-24] MEDS: DOCUSATE SODIUM 100 MG CAPSULE PO SCH ×2 (09:14→20:26)
[2019-10-24] MEDS: POVIDONE-IODINE 10% 120 ML SOLUTION TP SCH (09:14)
[2019-10-24] MEDS: HYDROGEN PEROXIDE 473 ML SOLUTION TP SCH (09:14)
[2019-10-24] MEDS: PANTOPRAZOLE SODIUM 40 MG DR TABLET PO SCH (09:14)
[2019-10-24 13:46] LABS: APPEARANCE,URINE CLEAR (CLEAR); BILIRUBIN,URINE NEGATIVE (NEGATIVE); GLUCOSE, URINE (UA) NEGATIVE (NEGATIVE); KETONES,URINE NEGATIVE (NEGATIVE); LEUKOCYTE ESTERASE ,URINE NEGATIVE (NEGATIVE); NITRATE,URINE NEGATIVE (NEGATIVE); OCCULT BLOOD,URINE NEGATIVE (NEGATIVE); PROTEIN,URINE NEGATIVE (NEGATIVE); UROBILINOGEN,URINE 0.2 mg/dL (<=1.0)
[2019-10-24] MEDS ORDERED: SCOPOLAMINE HYDROBROMIDE 1 MG/72 HOUR PATCH TD SCH (15:00)
[2019-10-24] MEDS: LEVOFLOXACIN 750 MG/D5% WATER 150 ML IV SCH (21:45)
[2019-10-25 04:23] VITALS: BP 107/63
[2019-10-25 07:22] LABS: BASOPHILS % (AUTO) 0.4 % (0.0-2.0); EOSINOPHILS % (AUTO) 0.7 % (1.0-6.0); HEMATOCRIT 33.7 % (41-53); LYMPHOCYTES # (AUTO) 1.3 K/uL (1.0-4.8); LYMPHOCYTES % (AUTO) 17.7 % (22.0-44.0); MEAN CORPUSCULAR HEMOGLOBIN 30.1 pg (26.0-34.0); MEAN CORPUSCULAR HGB CONC 32.7 G/dL (31.0-37.0); MEAN CORPUSCULAR VOLUME 92 fL (80-100); MONOCYTES # (AUTO) 0.6 K/uL (0.1-1.0); MONOCYTES % (AUTO) 9.1 % (2.0-9.0); NEUTROPHILS # (AUTO) 5.1 K/uL (1.8-7.7); NEUTROPHILS % (AUTO) 72.1 % (40.0-70.0); PLATELET COUNT (AUTO) 315 K/uL (150-450); RED BLOOD CELL COUNT(AUTO) 3.66 MIL/uL (4.50-5.90); RED CELL DISTRIBUTION WIDTH 14.5 % (11.5-14.5)
[2019-10-25 07:25] LABS: ANION GAP 2 mmol/L (8-16); CALCIUM, TOTAL 9.2 mg/dL (8.8-10.5); CARBON DIOXIDE 33 mmol/L (22-29); CHLORIDE 104 mmol/L (98-107); CREATININE 0.79 mg/dL (0.60-1.30); GLOMERULAR FILTR. RATE CALC > 60 mL/min (>60); GLUCOSE,RANDOM 120 mg/dL (70-110); POTASSIUM 4.2 mmol/L (3.5-5.1); SODIUM SERUM 139 mmol/L (136-145); UREA NITROGEN, BLOOD 12 mg/dL (7-18)
[2019-10-25 07:56] VITALS: BP 95/55
[2019-10-25] MEDS: DOCUSATE SODIUM 100 MG CAPSULE PO SCH (09:00)
[2019-10-25] MEDS: PANTOPRAZOLE SODIUM 40 MG DR TABLET PO SCH (09:00)
[2019-10-25 11:28] VITALS: BP 135/67
[2019-10-25] MEDS: POVIDONE-IODINE 10% 120 ML SOLUTION TP SCH (12:37)
[2019-10-25] MEDS: HYDROGEN PEROXIDE 473 ML SOLUTION TP SCH (12:37)
[2019-10-25 15:55] VITALS: BP 104/56
[2019-10-25 18:15] VITALS: BP 102/58
== END 2019-10-25 18:40 | DRG 640 ==
LOC: EMS 15:05 → 5N 20:02
PROVIDERS: ADMIT Internal Medicine; ATTEND Internal Medicine
PROC: 0DH63UZ Insertion of Feeding Device into Stomach, Percutaneous Approach (ICD-10-PCS; principal; 2019-10-22 12:00)
DX: R62.7 Adult failure to thrive (principal); E43 Unspecified severe protein-calorie malnutrition; J98.11 Atelectasis; J91.8 Pleural effusion in other conditions classified elsewhere; F03.90 Unspecified dementia, unspecified severity, without behavioral disturbance, psychotic disturbance, mood disturbance, and anxiety; J45.909 Unspecified asthma, uncomplicated; E86.0 Dehydration; R13.10 Dysphagia, unspecified; Z87.01 Personal history of pneumonia (recurrent); Z68.24 Body mass index [BMI] 24.0-24.9, adult; Z79.899 Other long term (current) drug therapy
CPT/HCPCS: 83605; 84145; 85007; 87040; 87081; 92526; 92610; 93005; 94640; 94799; 97110; 97116; 97162; 97166; 97530; 97535; G0238; J1644; J1956; J2270; J2704; J3490; J7030; J7050

== ENCOUNTER 2019-10-27 19:56 | Inpatient (IN) | payer MEDICARE, OTHER ==
[~2019-10-27] VITALS: Ht 185.4 cm; Wt 71.8 kg
[2019-10-27] MEDS ORDERED: SODIUM CHLORIDE 0.9% 1,000 ML IV ONE ×3 (19:57→21:45)
[2019-10-27 20:21] LABS: ABG A-A DIFF O2 607.4 mmHg (10-20.0); ABG BASE EXCESS 5.7 mmol/L (-2.0-3.0); ABG CARBOXYHEMOGLOBIN 0.2 % (0.0-1.5); ABG HCO3 28.4 mmol/L (22.0-26.0); ABG METHEMOGLOBIN 0.3 % (0.0-1.5); ABG OXYGEN CONTENT 16.9 mL/dL (15.0-23.0); ABG OXYGEN SATURATION 88.8 % (95.0-98.0); ABG OXYHEMOGLOBIN 88.4 % (94.0-100.0); ABG PCO2 51 mmHg (35-45); ABG PH 7.398 (7.35-7.450); ABG TOTAL HEMOGLOBIN 13.6 G/dL (12.0-18.0); O2 DEVICE,BLOOD GAS NON REBREATHER (ROOM AIR); PO2, ARTERIAL BG 54.9 mmHg (79.0-87.0); SITE, BLOOD GAS RT RADIAL; SOURCE, BLOOD GAS ARTERIAL; TEMPERATURE, FAHRENHEIT, BG 98.6 FAHREN (96.0-98.6)
[2019-10-27] MEDS ORDERED: SCOP1PAT11 TD (20:33)
[2019-10-27] MEDS ORDERED: IPRAHFA IH (20:33)
[2019-10-27] MEDS ORDERED: THIA100T67 GT (20:33)
[2019-10-27] MEDS ORDERED: BUDE0.5A3 NEB (20:33)
[2019-10-27 20:58] LABS: HEMATOCRIT 40.9 % (41-53); HEMOGLOBIN 13.1 g/dL (13.5-17.5); MEAN CORPUSCULAR HEMOGLOBIN 29.7 pg (26.0-34.0); MEAN CORPUSCULAR VOLUME 93 fL (80-100); PLATELET COUNT (AUTO) 331 K/uL (150-450); RED CELL DISTRIBUTION WIDTH 14.8 % (11.5-14.5)
[2019-10-27] MEDS ORDERED: PIPERACILLIN/TAZO 3.375 GM/D5W 50 ML IV ONE (21:00)
[2019-10-27] MEDS ORDERED: GENTAMICIN 60 MG/NACL ISO-OSM 50 ML IV ONE (21:00)
[2019-10-27 21:12] LABS: ANION GAP 5 mmol/L (8-16); CARBON DIOXIDE 32 mmol/L (22-29); CHLORIDE 103 mmol/L (98-107); CREATININE 0.96 mg/dL (0.60-1.30); GLOMERULAR FILTR. RATE CALC > 60 mL/min (>60); GLUCOSE,RANDOM 157 mg/dL (70-110); POTASSIUM 4.7 mmol/L (3.5-5.1); SODIUM SERUM 140 mmol/L (136-145); UREA NITROGEN, BLOOD 20 mg/dL (7-18)
[2019-10-27 21:19] LABS: APPEARANCE,URINE CLEAR (CLEAR); BILIRUBIN,URINE NEGATIVE (NEGATIVE); GLUCOSE, URINE (UA) NEGATIVE (NEGATIVE); KETONES,URINE NEGATIVE (NEGATIVE); LEUKOCYTE ESTERASE ,URINE NEGATIVE (NEGATIVE); NITRATE,URINE NEGATIVE (NEGATIVE); OCCULT BLOOD,URINE NEGATIVE (NEGATIVE); PROTEIN,URINE NEGATIVE (NEGATIVE); UROBILINOGEN,URINE 0.2 mg/dL (<=1.0)
[2019-10-27 21:19] LABS: ALANINE AMINOTRANSFERASE 95 U/L (12-78); ALBUMIN 2.7 g/dL (3.4-5.0); ALKALINE PHOSPHATASE 118 U/L (46-116); ASPARTATE AMINOTRANSFERASE 72 U/L (15-37); BILIRUBIN,TOTAL 0.3 mg/dL (0.1-1.0); CREATINE KINASE, TOTAL ONLY 28 U/L (39-308); TOTAL PROTEIN, SERUM 7.5 g/dL (6.4-8.2)
[2019-10-27] MEDS ORDERED: ALBUTEROL SULFATE 2.5 MG/0.5 ML NEB SOLUTION NEB PRN (21:30)
[2019-10-27] MEDS ORDERED: DEXTROSE 5%-0.45% SODIUM CHL 1,000 ML IV ONE (21:30)
[2019-10-27 21:40] LABS: INR 1.1 (0.9-1.1)
[2019-10-27 21:45] LABS: INFLUENZA TYPE A NEGATIVE FOR TYPE A (NEGATIVE); INFLUENZA TYPE B NEGATIVE FOR TYPE B (NEGATIVE)
[2019-10-27] MEDS ORDERED: VANCOMYCIN HCL 1.5 GM in DEXTROSE 5%-WATER 250 ML IV ONE (22:00)
[2019-10-27 22:16] LABS: BAND NEUTROPHILS % (MANUAL) 25 % (0-5); LYMPHOCYTES % (MANUAL) 12 % (22-44); MONOCYTES % (MANUAL) 3 % (2-9); SEGMENTED NEUTROPHILS % 60 % (40-70)
[2019-10-27] MEDS ORDERED: ACETAMINOPHEN 1000 MG/ISO-OSM 100 ML IV ONE (22:30)
[2019-10-27 23:22] VITALS: BP 108/50
[2019-10-27] MEDS ORDERED: SODIUM CHLORIDE 0.9% 0 ML ONE (23:50)
[2019-10-27] MEDS ORDERED: SODIUM CHLORIDE 0.9% 500 ML IV ONE (23:51)
[2019-10-28] VITALS: BP 95/51
[2019-10-28] MEDS ORDERED: SODIUM CHLORIDE 0.9% 50 ML ONE (00:06)
[2019-10-28] MEDS: HEPARIN SODIUM,PORCINE 5,000 UNITS/ML VIAL SQ SCH ×4 (00:07→23:21)
[2019-10-28 04:00] VITALS: BP 106/45
[2019-10-28] MEDS: PIPERACILLIN/TAZO 3.375 GM/D5W 50 ML IV SCH ×4 (04:41→21:47)
[2019-10-28 05:16] LABS: ANION GAP 4 mmol/L (8-16); CALCIUM, TOTAL 8.8 mg/dL (8.8-10.5); CARBON DIOXIDE 30 mmol/L (22-29); CHLORIDE 107 mmol/L (98-107); CREATININE 1.06 mg/dL (0.60-1.30); GLOMERULAR FILTR. RATE CALC > 60 mL/min (>60); GLUCOSE,RANDOM 156 mg/dL (70-110); POTASSIUM 4.7 mmol/L (3.5-5.1); SODIUM SERUM 141 mmol/L (136-145); UREA NITROGEN, BLOOD 17 mg/dL (7-18)
[2019-10-28] MEDS: DOCUSATE SODIUM 100 MG CAPSULE PO SCH ×2 (07:53→20:03)
[2019-10-28] MEDS: VANCOMYCIN HCL 1 GM/D5% WATER 200 ML IV SCH ×2 (07:54→20:04)
[2019-10-28 08:00] VITALS: BP 109/53
[2019-10-28 12:00] VITALS: BP 111/51
[2019-10-28 16:00] VITALS: BP 92/38
[2019-10-28 20:00] VITALS: BP 90/45
[2019-10-28] MEDS: ACETAMINOPHEN 325 MG TABLET PO PRN (20:04)
[2019-10-29] VITALS: BP 89/34
[2019-10-29] MEDS ORDERED: SODIUM CHLORIDE 0.9% 250 ML IV ONE (01:17)
[2019-10-29] MEDS: PIPERACILLIN/TAZO 3.375 GM/D5W 50 ML IV SCH ×4 (03:17→22:11)
[2019-10-29 04:00] VITALS: BP 98/42
[2019-10-29 05:39] LABS: BASOPHILS % (AUTO) 0.1 % (0.0-2.0); EOSINOPHILS % (AUTO) 1.9 % (1.0-6.0); LYMPHOCYTES # (AUTO) 0.6 K/uL (1.0-4.8); LYMPHOCYTES % (AUTO) 5.2 % (22.0-44.0); MEAN CORPUSCULAR HEMOGLOBIN 30.1 pg (26.0-34.0); MEAN CORPUSCULAR HGB CONC 32.5 G/dL (31.0-37.0); MEAN CORPUSCULAR VOLUME 92 fL (80-100); MONOCYTES # (AUTO) 0.4 K/uL (0.1-1.0); MONOCYTES % (AUTO) 3.1 % (2.0-9.0); NEUTROPHILS # (AUTO) 10.6 K/uL (1.8-7.7); RED CELL DISTRIBUTION WIDTH 15.1 % (11.5-14.5)
[2019-10-29 05:49] LABS: CALCIUM, TOTAL 9.1 mg/dL (8.8-10.5); CREATININE 1.35 mg/dL (0.60-1.30); POTASSIUM 4.2 mmol/L (3.5-5.1)
[2019-10-29 06:55] LABS: NEUTROPHILS % (AUTO) 89.7 % (40.0-70.0)
[2019-10-29 06:56] LABS: HEMATOCRIT 35.1 % (41-53); HEMOGLOBIN 11.5 g/dL (13.5-17.5); PLATELET COUNT (AUTO) 291 K/uL (150-450); RED BLOOD CELL COUNT(AUTO) 3.89 MIL/uL (4.50-5.90)
[2019-10-29 08:00] VITALS: BP 107/50
[2019-10-29 08:14] LABS: ABG A-A DIFF O2 252.5 mmHg (10-20.0); ABG BASE EXCESS 2.2 mmol/L (-2.0-3.0); ABG CARBOXYHEMOGLOBIN 0.3 % (0.0-1.5); ABG HCO3 26.2 mmol/L (22.0-26.0); ABG METHEMOGLOBIN 0.3 % (0.0-1.5); ABG OXYGEN CONTENT 13.3 mL/dL (15.0-23.0); ABG OXYGEN SATURATION 90.4 % (95.0-98.0); ABG OXYHEMOGLOBIN 89.9 % (94.0-100.0); ABG PCO2 42 mmHg (35-45); ABG PH 7.425 (7.35-7.450); ABG TOTAL HEMOGLOBIN 10.5 G/dL (12.0-18.0); PO2, ARTERIAL BG 57.3 mmHg (79.0-87.0); SOURCE, BLOOD GAS ARTERIAL; TEMPERATURE, FAHRENHEIT, BG 98.6 FAHREN (96.0-98.6)
[2019-10-29 08:15] LABS: O2 DEVICE,BLOOD GAS HI FL CANNULA (ROOM AIR); SITE, BLOOD GAS RT RADIAL
[2019-10-29] MEDS: DOCUSATE SODIUM 100 MG CAPSULE PO SCH ×2 (08:29→22:03)
[2019-10-29] MEDS: HEPARIN SODIUM,PORCINE 5,000 UNITS/ML VIAL SQ SCH ×2 (08:30→16:12)
[2019-10-29] MEDS: VANCOMYCIN HCL 750 MG in DEXTROSE 5%-WATER 250 ML IV SCH ×2 (09:34→21:10)
[2019-10-29 12:00] VITALS: BP 102/52
[2019-10-29 16:00] VITALS: BP 104/48
[2019-10-29 20:00] VITALS: BP 110/63
[2019-10-29] MEDS: ACETAMINOPHEN 325 MG TABLET PO PRN (22:10)
[2019-10-30] VITALS: BP 118/56
[2019-10-30] MEDS: HEPARIN SODIUM,PORCINE 5,000 UNITS/ML VIAL SQ SCH ×3 (00:40→16:54)
[2019-10-30 04:00] VITALS: BP 108/73
[2019-10-30] MEDS ORDERED: SODIUM CHLORIDE 0.9% 250 ML IV ONE ×2 (04:10→17:04)
[2019-10-30] MEDS: PIPERACILLIN/TAZO 3.375 GM/D5W 50 ML IV SCH ×3 (04:16→16:53)
[2019-10-30 06:55] LABS: CALCIUM, TOTAL 9.8 mg/dL (8.8-10.5); CREATININE 1.34 mg/dL (0.60-1.30); POTASSIUM 3.6 mmol/L (3.5-5.1); VANCOMYCIN,RANDOM 25.9 mcg/mL (25.0-50.0)
[2019-10-30] MEDS: VANCOMYCIN HCL 750 MG in DEXTROSE 5%-WATER 250 ML IV SCH ×2 (07:33→22:26)
[2019-10-30] MEDS: DOCUSATE SODIUM 100 MG CAPSULE PO SCH ×2 (07:34→22:26)
[2019-10-30 08:00] VITALS: BP 122/57
[2019-10-30 22:48] VITALS: BP 102/64
[2019-10-31] MEDS: HEPARIN SODIUM,PORCINE 5,000 UNITS/ML VIAL SQ SCH ×4 (01:14→23:41)
[2019-10-31] MEDS: PIPERACILLIN/TAZO 3.375 GM/D5W 50 ML IV SCH ×5 (01:14→22:30)
[2019-10-31 01:21] VITALS: BP 99/71
[2019-10-31 04:56] VITALS: BP 114/66
[2019-10-31 08:30] VITALS: BP 116/69
[2019-10-31] MEDS: DOCUSATE SODIUM 100 MG CAPSULE PO SCH ×2 (08:43→21:00)
[2019-10-31] MEDS: VANCOMYCIN HCL 750 MG in DEXTROSE 5%-WATER 250 ML IV SCH ×2 (08:46→20:00)
[2019-10-31 09:08] LABS: CALCIUM, TOTAL 9.5 mg/dL (8.8-10.5); CREATININE 1.23 mg/dL (0.60-1.30)
[2019-10-31 09:20] LABS: POTASSIUM 2.9 mmol/L (3.5-5.1)
[2019-10-31] MEDS ORDERED: POTASSIUM CHL 10 MEQ/WATER 50 ML IV PRN (10:45)
[2019-10-31 12:06] VITALS: BP 118/76
[2019-10-31] MEDS: POTASSIUM CHLORIDE 10% 40 MEQ/30 ML LIQUID UDCUP GT PRN (12:14)
[2019-10-31 16:06] VITALS: BP 121/78
[2019-10-31 20:00] VITALS: BP 121/69
[2019-10-31] MEDS ORDERED: SODIUM CHLORIDE 0.9% 1,000 ML ONE (23:39)
[2019-11-01] VITALS: BP 102/93
[2019-11-01 04:00] VITALS: BP 112/61
[2019-11-01] MEDS: PIPERACILLIN/TAZO 3.375 GM/D5W 50 ML IV SCH ×4 (04:00→22:42)
[2019-11-01 07:59] VITALS: BP 116/82
[2019-11-01] MEDS: VANCOMYCIN HCL 750 MG in DEXTROSE 5%-WATER 250 ML IV SCH ×2 (08:23→21:47)
[2019-11-01] MEDS: HEPARIN SODIUM,PORCINE 5,000 UNITS/ML VIAL SQ SCH ×2 (09:47→16:59)
[2019-11-01] MEDS: DOCUSATE SODIUM 100 MG CAPSULE PO SCH (09:48)
[2019-11-01 10:46] LABS: ANION GAP 4 mmol/L (8-16); CALCIUM, TOTAL 9.5 mg/dL (8.8-10.5); CARBON DIOXIDE 34 mmol/L (22-29); CHLORIDE 105 mmol/L (98-107); CREATININE 1.13 mg/dL (0.60-1.30); GLOMERULAR FILTR. RATE CALC > 60 mL/min (>60); GLUCOSE,RANDOM 123 mg/dL (70-110); POTASSIUM 3.3 mmol/L (3.5-5.1); SODIUM SERUM 143 mmol/L (136-145); UREA NITROGEN, BLOOD 18 mg/dL (7-18); VANCOMYCIN,RANDOM 47.3 mcg/mL (25.0-50.0)
[2019-11-01 10:56] VITALS: BP 122/78
[2019-11-01] MEDS: POTASSIUM CHLORIDE 10% 40 MEQ/30 ML LIQUID UDCUP GT PRN (12:00)
[2019-11-01 15:51] VITALS: BP 112/72
[2019-11-01 21:45] VITALS: BP 120/69
[2019-11-01] MEDS: DOCUSATE SODIUM 100 MG/10 ML LIQUID UDCUP GT SCH (22:36)
[2019-11-02 00:10] VITALS: BP 131/73
[2019-11-02] MEDS: HEPARIN SODIUM,PORCINE 5,000 UNITS/ML VIAL SQ SCH ×3 (00:44→15:25)
[2019-11-02] MEDS: PIPERACILLIN/TAZO 3.375 GM/D5W 50 ML IV SCH ×4 (04:04→22:45)
[2019-11-02 05:35] VITALS: BP 135/68
[2019-11-02 07:14] VITALS: BP 117/71
[2019-11-02] MEDS: VANCOMYCIN HCL 750 MG in DEXTROSE 5%-WATER 250 ML IV SCH ×2 (07:46→20:27)
[2019-11-02] MEDS: DOCUSATE SODIUM 100 MG/10 ML LIQUID UDCUP GT SCH ×2 (07:46→20:26)
[2019-11-02 07:57] LABS: ANION GAP 3 mmol/L (8-16); CALCIUM, TOTAL 9.6 mg/dL (8.8-10.5); CARBON DIOXIDE 35 mmol/L (22-29); CHLORIDE 107 mmol/L (98-107); CREATININE 1.11 mg/dL (0.60-1.30); GLOMERULAR FILTR. RATE CALC > 60 mL/min (>60); GLUCOSE,RANDOM 107 mg/dL (70-110); SODIUM SERUM 145 mmol/L (136-145); UREA NITROGEN, BLOOD 22 mg/dL (7-18); VANCOMYCIN,RANDOM 27.5 mcg/mL (25.0-50.0)
[2019-11-02] MEDS ORDERED: SODIUM CHLORIDE 0.9% 250 ML IV ONE (09:47)
[2019-11-02 11:07] VITALS: BP 127/65
[2019-11-02 20:58] VITALS: BP 128/75
[2019-11-03] VITALS (7 sets, daily range): BP systolic 108–142; BP diastolic 61–87
[2019-11-03] MEDS: HEPARIN SODIUM,PORCINE 5,000 UNITS/ML VIAL SQ SCH ×4 (00:47→23:27)
[2019-11-03] MEDS: PIPERACILLIN/TAZO 3.375 GM/D5W 50 ML IV SCH ×4 (04:54→22:28)
[2019-11-03 05:57] LABS: ABG BASE EXCESS 9.4 mmol/L (-2.0-3.0); ABG CARBOXYHEMOGLOBIN 0.3 % (0.0-1.5); ABG HCO3 31.4 mmol/L (22.0-26.0); ABG METHEMOGLOBIN 0.3 % (0.0-1.5); ABG OXYGEN CONTENT 15.9 mL/dL (15.0-23.0); ABG OXYGEN SATURATION 92.6 % (95.0-98.0); ABG PCO2 58 mmHg (35-45); ABG PH 7.393 (7.35-7.450); ABG TOTAL HEMOGLOBIN 12.3 G/dL (12.0-18.0); PO2, ARTERIAL BG 65.7 mmHg (79.0-87.0); SITE, BLOOD GAS RT RADIAL; SOURCE, BLOOD GAS ARTERIAL; TEMPERATURE, FAHRENHEIT, BG 98.4 FAHREN (96.0-98.6)
[2019-11-03 05:58] LABS: O2 DEVICE,BLOOD GAS NON REBREATHER (ROOM AIR)
[2019-11-03] MEDS: DOCUSATE SODIUM 100 MG/10 ML LIQUID UDCUP GT SCH ×2 (09:00→19:53)
[2019-11-03] MEDS ORDERED: SCOPOLAMINE HYDROBROMIDE 1 MG/72 HOUR PATCH TD SCH (09:00)
[2019-11-03] MEDS: ACETAMINOPHEN 325 MG TABLET PO PRN (09:18)
[2019-11-03] MEDS: VANCOMYCIN HCL 750 MG in DEXTROSE 5%-WATER 250 ML IV SCH ×2 (13:11→19:53)
[2019-11-03 13:31] LABS: CALCIUM, TOTAL 9.9 mg/dL (8.8-10.5); CREATININE 1.28 mg/dL (0.60-1.30); POTASSIUM 4.2 mmol/L (3.5-5.1)
[2019-11-03] MEDS: METOCLOPRAMIDE HCL 5 MG/ML 2 ML VIAL IVP SCH ×2 (16:28→23:27)
[2019-11-04 03:29] VITALS: BP 121/68
[2019-11-04] MEDS: PIPERACILLIN/TAZO 3.375 GM/D5W 50 ML IV SCH ×3 (03:32→16:10)
[2019-11-04 07:33] VITALS: BP 101/58
[2019-11-04 08:53] LABS: ANION GAP 2 mmol/L (8-16); CALCIUM, TOTAL 9.9 mg/dL (8.8-10.5); CARBON DIOXIDE 37 mmol/L (22-29); CHLORIDE 106 mmol/L (98-107); CREATININE 1.19 mg/dL (0.60-1.30); GLOMERULAR FILTR. RATE CALC > 60 mL/min (>60); GLUCOSE,RANDOM 113 mg/dL (70-110); POTASSIUM 3.7 mmol/L (3.5-5.1); SODIUM SERUM 145 mmol/L (136-145); UREA NITROGEN, BLOOD 22 mg/dL (7-18); VANCOMYCIN,RANDOM 26.8 mcg/mL (25.0-50.0)
[2019-11-04] MEDS: METOCLOPRAMIDE HCL 5 MG/ML 2 ML VIAL IVP SCH ×2 (09:23→16:10)
[2019-11-04] MEDS: HEPARIN SODIUM,PORCINE 5,000 UNITS/ML VIAL SQ SCH ×2 (09:23→16:10)
[2019-11-04] MEDS: DOCUSATE SODIUM 100 MG/10 ML LIQUID UDCUP GT SCH (09:23)
[2019-11-04] MEDS ORDERED: VANCOMYCIN HCL 1.25 GM in DEXTROSE 5%-WATER 250 ML IV ONE (10:00)
[2019-11-04 11:48] VITALS: BP 113/63
[2019-11-04] MEDS ORDERED: VANCOMYCIN HCL 500 MG in DEXTROSE 5%-WATER 100 ML IV ONE (13:00)
[2019-11-05] MEDS ORDERED: VANCOMYCIN HCL 1.25 GM in DEXTROSE 5%-WATER 250 ML IV SCH (08:00)
[2019-11-06] MEDS ORDERED: SCOPOLAMINE HYDROBROMIDE 1 MG/72 HOUR PATCH TD SCH (09:00)
== END 2019-11-04 18:05 | DRG 871 ==
LOC: EMS 19:56 → ICUN 22:23 → ICU 10-29 19:30 → 5S 10-30 11:15 → 5N 11-02 22:00
PROVIDERS: ADMIT Internal Medicine; ATTEND Internal Medicine
PROC: 5A1945Z Respiratory Ventilation, 24-96 Consecutive Hours (ICD-10-PCS; principal; 2019-10-28)
PROC: 0BH18EZ Insertion of Endotracheal Airway into Trachea, Via Natural or Artificial Opening Endoscopic (ICD-10-PCS; 2019-10-28)
DX: A41.9 Sepsis, unspecified organism (principal); J69.0 Pneumonitis due to inhalation of food and vomit; E43 Unspecified severe protein-calorie malnutrition; J96.01 Acute respiratory failure with hypoxia; R13.10 Dysphagia, unspecified; F03.90 Unspecified dementia, unspecified severity, without behavioral disturbance, psychotic disturbance, mood disturbance, and anxiety; Z68.20 Body mass index [BMI] 20.0-20.9, adult; R62.7 Adult failure to thrive; Z22.322 Carrier or suspected carrier of Methicillin resistant Staphylococcus aureus; Z93.1 Gastrostomy status
CPT/HCPCS: 36600; 51702; 71250; 82805; 83605; 84132; 87040; 87070; 87081; 87205; 87635; 87804; 93005; 94799; G0378; J0131; J1580; J1644; J2543; J2765; J3370; J7030; J7040; J7050; J7060